=== PATIENT | female | born 1955 | race Caucasian/White ===

== ENCOUNTER → 2019-08-26 | Outpatient (CLI) | payer BC ==
--- NOTE | 2019-08-26 10:28 | Diagnostic Imaging Report ---
PROCEDURE: US left lower extremity venous. TECHNIQUE: Multiple real-time grayscale images were obtained over the left lower extremity in various projections. Additional duplex Doppler and color Doppler images were also obtained. Date: August 26, 2019. Indication: 64-year-old female, left leg pain. Comparison: October 07, 2015. Findings: The left common femoral vein, left superficial femoral vein, and left popliteal vein are patent. The visualized portions of the left greater saphenous vein and deep femoral vein are patent. The left posterior tibial vein is patent. Impression: 1. Negative for left lower extremity deep venous thrombosis. Dictated by: Dictated on workstation # [id number]
--- NOTE | 2019-08-26 10:29 | Diagnostic Imaging Report ---
INDICATION: Left leg pain Arterial Doppler left leg Duplex ultrasound of the arterial system of the left leg was done with grayscale, spectral wave form and color Doppler analysis Patient has triphasic wave forms and normal velocities throughout the left leg. There is normal velocity transition from the groin to the ankle. IMPRESSION: Unremarkable arterial Doppler of the left leg. Dictated by: Dictated on workstation # [id number]
--- NOTE | 2019-08-26 13:17 | Diagnostic Imaging Report ---
INDICATION: Routine screening. COMPARISON: 08/14/2015 and 09/20/2013. TECHNIQUE: 2D and 3D bilateral screening mammography was performed with CAD. FINDINGS: Both breasts are heterogeneously dense, limiting the sensitivity of mammography. There are benign parenchymal and vascular calcifications bilaterally. The breast parenchymal pattern appears to be stable. No dominant mass or malignant appearing microcalcifications are seen. The axillae are unremarkable. IMPRESSION: No mammographic features suspicious for malignancy are identified. ACR BI-RADS Category 2: Benign findings. Result letter will be mailed to the patient. Note: At least 10% of breast cancer is not imaged by mammography. Dictated by: Dictated on workstation # [id number]
== END ==
LOC: RAD 08:38
PROVIDERS: ATTEND Nurse Practitioner Family
DX: Z00.01 Encounter for general adult medical examination with abnormal findings (principal); Z12.31 Encounter for screening mammogram for malignant neoplasm of breast; I10 Essential (primary) hypertension; I73.9 Peripheral vascular disease, unspecified; M10.9 Gout, unspecified; F32.9 Major depressive disorder, single episode, unspecified; G43.809 Other migraine, not intractable, without status migrainosus; M62.838 Other muscle spasm; M13.80 Other specified arthritis, unspecified site; M79.605 Pain in left leg; Z72.0 Tobacco use
CPT/HCPCS: 77063; 77067; 93926

== ENCOUNTER 2019-10-11 05:46 | Outpatient (RCR) | payer BC ==
[~2019-10-11] VITALS: Ht 157.5 cm; Wt 57.7 kg
[~2019-10-11 05:46] MED LIST: ALLO100T PO; ESCI10TA PO; LEVO50TA6 PO; LISI-556 PO; POTA99TA21 PO; ROPI0.5T4 PO
== END 2019-10-11 09:42 | disposition home or self-care (01) ==
LOC: PREOP 05:46
PROVIDERS: ATTEND Surgery
DX: Z01.818 Encounter for other preprocedural examination (principal); K21.9 Gastro-esophageal reflux disease without esophagitis; Z20.828 Contact with and (suspected) exposure to other viral communicable diseases
CPT/HCPCS: 87635

== ENCOUNTER 2019-10-15 08:24 | Day surgery (SDC) | payer BC ==
[~2019-10-15] VITALS: Ht 157.5 cm; Wt 57.7 kg
[2019-10-15] MEDS ORDERED: LACTATED RINGERS 1,000 ML IV ONE (08:25)
[2019-10-15] MEDS ORDERED: LACTATED RINGERS 1,000 ML IV STA (08:32)
[2019-10-15] MEDS ORDERED: HURRICAINE EXT TUBE (BENZOCAINE) XX PRN (08:45)
[2019-10-15] MEDS ORDERED: ONDANSETRON 4 MG/2 ML (SDV) Z0FRAN ONE (08:48)
[2019-10-15] MEDS ORDERED: ONDANSETRON 4 MG/2 ML (SDV) Z0FRAN IVP ONE (08:55)
[2019-10-15 09:19] VITALS: BP 108/82
[2019-10-15] MEDS ORDERED: PROPOFOL INJECTION 0 ML IV ONE (09:24)
[2019-10-15] MEDS ORDERED: MIDAZOLAM 2 MG/2 ML (VERSED) VIAL ONE (09:24)
[2019-10-15] MEDS ORDERED: PROPOFOL INJECTION 50 ML IV ONE (09:39)
[2019-10-15] MEDS ORDERED: proPOfol 200 MG/20 ML (DIPRIVAN) VIAL IV ONE (09:52)
[2019-10-15 10:30] VITALS: BP 98/61
[2019-10-15 10:35] VITALS: BP 98/61
--- NOTE | 2019-10-15 10:41 | Progress Note-Post Operative ---
Post-Operative Progess Note Surgeon (s)/Staff Nurse (s) Surgeon JOSTIN LEWIS DO Staff Nurse: na Pre-Operative Diagnosis gerd, +cologuard Post-Operative Diagnosis gastritis, colon polyps Procedure & Operative Findings Date of Procedure 10/15/19 Procedure Performed/Findings egd c biopsies, colonoscopy c hot bx polypectomy and snare polypectomy Anesthesia Type per lamp inspector Estimated Blood Loss Estimated blood loss (mL): none Specimens/Packing Specimens Removed antrum, body, ge, ascending colon polyp, sigmoid polyp JOSTIN LEWIS DO Oct 15, 2019 10:41
[2019-10-15] MEDS ORDERED: PANT40TA2 PO (10:43)
--- NOTE | 2019-10-15 10:45 | Discharge Inst-Simple/Standard ---
Discharge Inst-Standard Discharge Medications New, Converted or Re-Newed RX: Transmitted to Pharmacy Patient Instructions/Follow Up Plan of Care/Instructions/FU: 2 weeks Gabriella Activity as Tolerated: Yes Discharge Diet: Regular Diet JOSTIN LEWIS DO Oct 15, 2019 10:45
[2019-10-15 11:05] VITALS: BP 106/65
[2019-10-15 11:26] VITALS: BP 106/65
--- NOTE | 2019-10-15 13:16 | Anesthesia-General Post-Op ---
MAC Patient Condition Mental Status/LOC: Same as Preop Cardiovascular: Satisfactory Nausea/Vomiting: Absent Respiratory: Satisfactory Pain: Controlled Complications: Absent Post Op Complications Complications None Follow Up Care/Instructions Patient Instructions None needed. Anesthesiology Discharge Order Discharge Order Patient is doing well, no complaints, stable vital signs, no apparent adverse anesthesia problems. No complications reported per nursing. TATO SHAH CRNA Oct 15, 2019 13:16
--- NOTE | 2019-10-15 18:11 | OPERATIVE REPORT ---
DATE OF SERVICE: 10/15/2019 PREOPERATIVE DIAGNOSES: Positive Cologuard test, gastroesophageal reflux disease, diarrhea. POSTOPERATIVE DIAGNOSES: Gastritis, hiatal hernia and colon polyps. PROCEDURE: EGD with biopsies, colonoscopy with hot biopsy polypectomy and snare polypectomy. SURGEON: Jostin Quiroz DO ANESTHESIA: Per PROGRAM FACILITATOR. ESTIMATED BLOOD LOSS: None. COMPLICATIONS: None. INDICATIONS: The patient is a 64-year-old female with GERD and frequent diarrhea and had a positive Cologuard test. She understands risks and benefits of procedure and wished to proceed with procedure. Consent was signed in the chart. DESCRIPTION OF PROCEDURE: The patient was taken to the endoscopy suite, placed in left lateral recumbent position. Timeout was performed. Scope was inserted in mouth, esophagus, stomach and duodenum. There were no polyps, masses or ulcerations within the duodenum. Scope was then slowly retracted back into the stomach, which had erythematous changes throughout and changes consistent with gastritis. No polyps, masses or ulcerations. Biopsy of the antrum and body were obtained. Scope was retroflexed noting a hiatal hernia, no other pathology. Scope was returned to its normal position, slowly withdrawn to distal esophagus. Biopsy of the GE junction was obtained. Scope was then slowly retracted back to completely remove noting no other pathology. Digital rectal exam was performed. No palpable polyps, masses or ulcerations. Scope was inserted in the rectum, advanced all the way to cecum with minimal difficulty. Prep was adequate. Scope was then slowly retracted back. No polyps, masses or ulcerations visualized within the cecum. The ascending, a small polyp was present. Hot biopsy polypectomy was performed. Scope was then continuously retracted back. No polyps, masses or ulcerations in the remainder of the ascending, transverse and descending colon. In sigmoid colon, a larger pedunculated polyp was present, which snare polypectomy was performed. Scope was then used to suction and withdrawn from the colon. Scope was then reinserted into the colon and advanced all the way to the place of where the polyp was removed and then slowly retracted back. No other polyps, masses or ulcerations within the remainder of the sigmoid colon and in the rectum, scope was attempted to be retroflexed, but the scope had to be inserted and retracted with multiple visualizations. Then, the scope was then slowly retracted back until completely removed. The patient tolerated procedure well without any complications. She was taken to recovery room in stable condition. RECOMMENDATIONS: The patient will need repeat colonoscopy in one year to reevaluate the colon due to the larger polyp and was started on Protonix 40 mg daily to see how her symptoms are doing with her reflux. Job ID: [id number] DocumentID: [id number] Dictated Date: 10/15/2019 10:52:44 Structural Engineer Date: 10/15/2019 18:10:03 Dictated By: JOSTIN QUIROZ DO
== END 2019-10-15 11:28 | disposition home or self-care (01) ==
LOC: ENDO 08:24
PROVIDERS: ATTEND Surgery
DX: K29.70 Gastritis, unspecified, without bleeding (principal); K44.9 Diaphragmatic hernia without obstruction or gangrene; K21.9 Gastro-esophageal reflux disease without esophagitis; D12.5 Benign neoplasm of sigmoid colon; D12.2 Benign neoplasm of ascending colon; K31.9 Disease of stomach and duodenum, unspecified; K25.9 Gastric ulcer, unspecified as acute or chronic, without hemorrhage or perforation; I10 Essential (primary) hypertension; D64.9 Anemia, unspecified; M19.91 Primary osteoarthritis, unspecified site; Z87.891 Personal history of nicotine dependence; Z88.0 Allergy status to penicillin; Z88.1 Allergy status to other antibiotic agents; Z88.8 Allergy status to other drugs, medicaments and biological substances; Z79.899 Other long term (current) drug therapy; Z79.890 Hormone replacement therapy; Z96.659 Presence of unspecified artificial knee joint; Z88.6 Allergy status to analgesic agent
CPT/HCPCS: 88305

== ENCOUNTER 2020-01-13 13:24 | Emergency (ER) | payer BC ==
[~2020-01-13] VITALS: Ht 157 cm; Wt 56.6 kg
[~2020-01-13 13:24] MED LIST changes: +PANT40TA2 PO
[2020-01-13] MEDS ORDERED: ASPIRIN 81 MG CHEW (CHILDREN'S ASA) PO ONE (13:45)
[2020-01-13 13:50] LABS: BASOPHILS % (AUTO) 0 % (0-10); EOSINOPHILS # (AUTO) 0.1 10^3/uL (0.0-0.3); EOSINOPHILS % (AUTO) 1 % (0-10); HEMATOCRIT 43 % (35-52); HEMOGLOBIN 13.7 g/dL (11.5-16.0); LYMPHOCYTES # (AUTO) 2.7 10^3/uL (1.0-4.0); LYMPHOCYTES % (AUTO) 37 % (12-44); MEAN CORPUSCULAR HEMOGLOBIN 34 pg (25-34); MEAN CORPUSCULAR HGB CONC 32 g/dL (32-36); MEAN CORPUSCULAR VOLUME 108 fL (80-99); MEAN PLATELET VOLUME 8.1 fL (9.0-12.2); MONOCYTES # (AUTO) 0.7 10^3/uL (0.0-1.0); MONOCYTES % (AUTO) 10 % (0-12); NEUTROPHILS # (AUTO) 3.6 10^3/uL (1.8-7.8); NEUTROPHILS % (AUTO) 51 % (42-75); PLATELET COUNT 370 10^3/uL (130-400); WHITE BLOOD COUNT 7.2 10^3/uL (4.3-11.0)
[2020-01-13 13:59] LABS: ALBUMIN 4.6 GM/DL (3.2-4.5); CHLORIDE 104 MMOL/L (98-107); POTASSIUM 4.4 MMOL/L (3.6-5.0); SODIUM 140 MMOL/L (135-145)
[2020-01-13 14:00] LABS: CALCIUM 8.5 MG/DL (8.5-10.1)
[2020-01-13] MEDS ORDERED: amLODIPine 5 MG (NORVASC) TAB PO ONE (14:00)
[2020-01-13] MEDS ORDERED: KETOROLAC 30 MG/ML VIAL IVP STA (14:00)
[2020-01-13 14:02] LABS: GLUCOSE 99 MG/DL (70-105); TOTAL PROTEIN 7.3 GM/DL (6.4-8.2)
[2020-01-13 14:03] LABS: BILIRUBIN,TOTAL 0.2 MG/DL (0.1-1.0); CARBON DIOXIDE 24 MMOL/L (21-32)
[2020-01-13 14:05] LABS: ALKALINE PHOSPHATASE 72 U/L (40-136); CREATININE SERUM 0.74 MG/DL (0.60-1.30); GFR ESTIMATED > 60
[2020-01-13 14:06] LABS: INR 0.8 (0.8-1.4); PROTHROMBIN TIME PATIENT 11.9 SEC (12.2-14.7)
[2020-01-13 14:07] LABS: BUN/CREATININE RATIO 19
[2020-01-13 14:08] LABS: ALANINE AMINOTRANSFERASE 25 U/L (0-55); MAGNESIUM 2.1 MG/DL (1.6-2.4)
--- NOTE | 2020-01-13 14:19 | Diagnostic Imaging Report ---
INDICATION: Chest pain COMPARISON: 07/11/2015. FINDINGS: Single frontal view of the chest demonstrates normal heart size and pulmonary vascularity. The lungs are well aerated and clear. No large pleural effusion or pneumothorax is seen. The visualized osseous structures show no acute abnormalities. IMPRESSION: 1. No acute cardiopulmonary process. Dictated by: Dictated on workstation # [id number]
--- NOTE | 2020-01-13 14:57 | ED Chest Pain ---
General Chief Complaint: Chest Pain Stated Complaint: CP Nursing Triage Note: pt presents to ed with complaints of l sided cp since monday. pt was seen at urgent care and had a flu and rapid covid swab done both were reported negative as well as an ekg. Nursing Sepsis Screen: No Definite Risk Source: patient Exam Limitations: no limitations History of Present Illness Date Seen by Provider: Jan 13, 2020 Time Seen by Provider: 13:38 Initial Comments Here with report of left-sided chest pain under the left breast that has been going on for the last 2 days. Has been persistent and she reports that it sharp. Noted that she has had cough for couple weeks that is actually getting better and is wondering if maybe this is musculoskeletal but was worried about heart. She did try 325 mg of aspirin today without relief. She has also taken Tylenol 3 and one of her husbands oxycodones and that has not helped. Denies nausea, vomiting or diarrhea. Reports that she may have a urinary tract infection. 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 SURGEON: Yes NTG SL ORTHOPAEDIC SURGEON: No Associated Symptoms: No back pain, No fatigue, No nausea/vomiting, No shortness of breath, No weakness Allergies and Home Medications Allergies Coded Allergies: Penicillins (Verified Allergy, Unknown, Hives, 10/08/19) cephalexin (Verified Allergy, Unknown, Anaphylaxis, 10/08/19) metoclopramide (Verified Allergy, Unknown, 10/08/19) tramadol (Verified Allergy, Unknown, Itching, 10/08/19) Home Medications Allopurinol 100 Mg Tablet, 100 MG PO DAILY, (Reported) Escitalopram Oxalate 10 Mg Tablet, 10 MG PO DAILY, (Reported) Levothyroxine Sodium 50 Mcg Tablet, 50 MCG PO DAILY, (Reported) Lisinopril 5 Mg Tablet, 5 MG PO DAILY, (Reported) Pantoprazole Sodium 40 Mg Tablet.dr, 40 MG PO DAILY Prescribed by: JOSTIN LEWIS on 10/15/19 1043 Potassium Gluconate 99 Mg Tablet, 99 MG PO DAILY, (Reported) Ropinirole HCl 0.5 Mg Tablet, 0.5 MG PO HS, (Reported) Patient Home Medication List Home Medication List Reviewed: Yes Review of Systems Review of Systems Constitutional: see HPI; No chills, No fever EENTM: No Symptoms Reported Respiratory: Cough; Denies Shortness of Air Cardiovascular: Chest Pain; Denies Edema Gastrointestinal: Denies Diarrhea, Denies Vomiting Genitourinary: No Symptoms Reported Musculoskeletal: no symptoms reported Skin: no symptoms reported Psychiatric/Neurological: No Symptoms Reported All Other Systems Reviewed Negative Unless Noted: Yes Past Nbjyvsv-Kfsjoq-Aqmpea Hx Past Med/Social Hx: Reviewed Nursing Past Med/Soc Hx Patient Social History Alcohol Use: Denies Use Recreational Drug Use: No Smoking Status: Current Everyday Smoker Type Used: Cigarettes Former Smoker, Quit: Oct 07, 2018 Recent Foreign Travel: No Contact w/Someone Who Travel: No Recent Infectious Disease Expo: No Recent Hopitalizations: No Physical Abuse: No Sexual Abuse: No Mistreated: No Fear: No Seasonal Allergies Seasonal Allergies: No Past Medical History Surgeries: Yes (c/s x3, TKR) Hysterectomy, Orthopedic, Tonsillectomy Respiratory: No Cardiac: Yes Hypertension 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 Genitourinary: No Gastrointestinal: Yes (+cologuard) Gastroesophageal Reflux, Chronic Diarrhea Musculoskeletal: Yes (joint pain) Endocrine: Yes Hypothyroidsim HEENT: No Cancer: No Psychosocial: No Integumentary: No Blood Disorders: Yes (anemia) Family Medical History Reviewed Nursing Family Hx Physical Exam Vital Signs Vital Signs - First Documented 01/13/20 13:47 Temp 36.2 Pulse 80 Resp 18 B/P (MAP) 192/80 (117) Pulse Ox 97 O2 Delivery Room Air Capillary Refill : Less Than 3 Seconds Height, Weight, BMI Height: '" Weight: lbs. oz. kg; 22.00 BMI Method: General Appearance: No Apparent Distress, WD/WN HEENT: PERRL/EOMI, Pharynx Normal Neck: Non Tender, Supple Respiratory: Lungs Clear, Normal Breath Sounds, Other (Tender under left breast) Cardiovascular: Regular Rate, Rhythm, No Murmur Gastrointestinal: Non Tender, Soft Neurologic/Psychiatric: Alert, Oriented x3 Skin: Normal Color, Cool; No Rash Progress/Results/Core Measures Results/Orders Lab Results Laboratory Tests Test 01/13/20 13:38 01/13/20 14:03 Range/Units White Blood Count 7.2 4.3-11.0 10^3/uL Red Blood Count 4.01 3.80-5.11 10^6/uL Hemoglobin 13.7 11.5-16.0 g/dL Hematocrit 43 35-52 % Mean Corpuscular Volume 108 H 80-99 fL Mean Corpuscular Hemoglobin 34 25-34 pg Mean Corpuscular Hemoglobin Concent 32 32-36 g/dL Red Cell Distribution Width 12.7 10.0-14.5 % Platelet Count 370 130-400 10^3/uL Mean Platelet Volume 8.1 L 9.0-12.2 fL Immature Granulocyte % (Auto) 1 % Neutrophils (%) (Auto) 51 42-75 % Lymphocytes (%) (Auto) 37 12-44 % Monocytes (%) (Auto) 10 0-12 % Eosinophils (%) (Auto) 1 0-10 % Basophils (%) (Auto) 0 0-10 % Neutrophils # (Auto) 3.6 1.8-7.8 10^3/uL Lymphocytes # (Auto) 2.7 1.0-4.0 10^3/uL Monocytes # (Auto) 0.7 0.0-1.0 10^3/uL Eosinophils # (Auto) 0.1 0.0-0.3 10^3/uL Basophils # (Auto) 0.0 0.0-0.1 10^3/uL Immature Granulocyte # (Auto) 0.0 0.0-0.1 10^3/uL Prothrombin Time 11.9 L 12.2-14.7 SEC INR Comment 0.8 0.8-1.4 Activated Partial Thromboplast Time 27 24-35 SEC D-Dimer < 0.27 0.00-0.49 UG/ML Sodium Level 140 135-145 MMOL/L Potassium Level 4.4 3.6-5.0 MMOL/L Chloride Level 104 98-107 MMOL/L Carbon Dioxide Level 24 21-32 MMOL/L Anion Gap 12 5-14 MMOL/L Blood Urea Nitrogen 14 7-18 MG/DL Creatinine 0.74 0.60-1.30 MG/DL Estimat Glomerular Filtration Rate > 60 BUN/Creatinine Ratio 19 Glucose Level 99 70-105 MG/DL Calcium Level 8.5 8.5-10.1 MG/DL Corrected Calcium 8.5-10.1 MG/DL Magnesium Level 2.1 1.6-2.4 MG/DL Total Bilirubin 0.2 0.1-1.0 MG/DL Aspartate Amino Transf (AST/SGOT) 17 5-34 U/L Alanine Aminotransferase (ALT/SGPT) 25 0-55 U/L Alkaline Phosphatase 72 40-136 U/L Myoglobin 19.8 10.0-92.0 NG/ML Troponin I < 0.028 <0.028 NG/ML Total Protein 7.3 6.4-8.2 GM/DL Albumin 4.6 H 3.2-4.5 GM/DL Lipase 22 8-78 U/L Urine Color YELLOW Urine Clarity CLEAR Urine pH 5.5 5-9 Urine Specific Russell <=1.005 1.016-1.022 Urine Protein NEGATIVE NEGATIVE Urine Glucose (UA) NEGATIVE NEGATIVE Urine Ketones NEGATIVE NEGATIVE Urine Nitrite NEGATIVE NEGATIVE Urine Bilirubin NEGATIVE NEGATIVE Urine Urobilinogen 0.2 < = 1.0 MG/DL Urine Leukocyte Esterase NEGATIVE NEGATIVE Urine RBC (Auto) TRACE-L NEGATIVE Urine RBC 0-2 /HPF Urine WBC RARE /HPF Urine Squamous Epithelial Cells 2-5 /HPF Urine Crystals NONE /LPF Urine Bacteria NEGATIVE /HPF Urine Casts NONE /LPF Urine Mucus NEGATIVE /LPF Urine Culture Indicated NO My Orders Orders - MERCEDES MONET MD Cbc With Automated Diff (01/13/20 13:37) Magnesium (01/13/20 13:37) Chest 1 View, Ap/Pa Only (01/13/20 13:37) Ekg Tracing (01/13/20 13:37) Comprehensive Metabolic Panel (01/13/20 13:37) Myoglobin Serum (01/13/20 13:37) Protime With Inr (01/13/20 13:37) Partial Thromboplastin Time (01/13/20 13:37) O2 (01/13/20 13:37) Monitor-Rhythm Ecg Trace Only (01/13/20 13:37) Lipid Panel (01/14/20 06:00) Ed Iv/Invasive Line Start (01/13/20 13:37) Fibrin Degradation Products (01/13/20 13:37) Troponin I (01/13/20 13:37) Lipase (01/13/20 14:00) Ketorolac Injection (Toradol Injection) (01/13/20 14:00) Amlodipine Tablet (Norvasc Tablet) (01/13/20 14:00) Ua Culture If Indicated (01/13/20 14:57) Medications Given in ED Current Medications Medications Dose Ordered Sig/Maria G Route Start Time Stop Time Status Last Admin Dose Admin Amlodipine Besylate 5 mg ONCE ONCE PO 01/13/20 14:00 01/13/20 14:01 DC 01/13/20 14:38 5 MG Vital Signs/I&O 01/13/20 01/13/20 13:47 13:47 Temp 36.2 Pulse 80 Resp 18 B/P (MAP) 192/80 (117) Pulse Ox 97 O2 Delivery Room Air Blood Pressure Mean: 117 Progress Progress Note : Progress Note Seen and evaluated. IV, labs, chest x-ray and EKG ordered. Toradol 30 mg IV and amlodipine 5 mg p.o. ordered. Monitor patient. 1600: Pain is about the same but work-up is negative. We will initiate hydrocodone outpatient for a few tablets. We will also initiate amlodipine outpatient and have her follow-up with her doctor. Discharged home with return precautions. Patient verbalized understanding of instructions and agreement with plan. Initial ECG Impression Date: Jan 13, 2020 Initial ECG Impression Time: 13:33 Initial ECG Rate: 80 Initial ECG Rhythm: Normal Sinus Comment Sinus rhythm with normal axis. No evidence of ST elevation AL. No previous available for comparison. Interpreted by me. Diagnostic Imaging Diagonstic Imaging: Xray Plain Films/CT/US/NM/MRI: chest Comments [facility]. [place], [place] NAME: LISANDRA LEONARD [facility] REC#: [id number] PT STATUS: REG ER : 1955 PHYSICIAN: MERCEDES MONET MD ADMIT DATE: 01/13/20/ER Draft Date of Exam:01/13/20 CHEST 1 VIEW, AP/PA ONLY INDICATION: Chest pain COMPARISON: 07/11/2015. FINDINGS: Single frontal view of the chest demonstrates normal heart size and pulmonary vascularity. The lungs are well aerated and clear. No large pleural effusion or pneumothorax is seen. The visualized osseous structures show no acute abnormalities. IMPRESSION: 1. No acute cardiopulmonary process. Dictated on workstation # [id number] Dict: 01/13/20 1408 Trans: 01/13/20 1418 [id number] Interpreted by: CHEVY ZHANG MD Electronically signed by: Departure Impression Primary Impression: Chest pain Qualified Codes: R07.9 - Chest pain, unspecified Disposition: 01 HOME, SELF-CARE Condition: Stable Departure-Patient Inst. Decision time for Depature: 16:05 Referrals: [facility] (PCP) Primary Care Physician RIA ROME APRN (Family) Primary Care Physician Patient Instructions: Chest Pain (DC) Add. Discharge Instructions: All discharge instructions reviewed with patient and/or family. Voiced understanding. Follow-up with your doctor for recheck regarding your blood pressure. We will initiate amlodipine now and you can take that. You have 1 month prescription which will give you time to evaluate effectiveness and talk with your doctor. You may take the hydrocodone for severe pain but otherwise take Tylenol/acetaminophen 1000 mg every 8 hours as needed for pain. Do not take the Tylenol/acetaminophen at the same time as the prescribed hydrocodone-containing medicine as they both have acetaminophen in them. Return for worse pain, fever, vomiting, weakness, breathing problems or other concerns as needed. Scripts Amlodipine Besylate (Amlodipine Besylate) 5 Mg Tablet 5 MG PO DAILY for 30 Days, #30 TAB 0 Refills Prov: MERCEDES MONET MD 01/13/20 Hydrocodone/Acetaminophen (Hydrocodone/Acetaminophen 5 MG/325 MG TAB) 1 Each Tablet 1 TAB PO Q6H for Pain MDD 10 TABS for 3 Days, #6 TAB 0 Refills Prov: MERCEDES MONET MD 01/13/20 MERCEDES MONET MD Jan 13, 2020 14:56
[2020-01-13 15:01] LABS: BILIRUBIN,URINE NEGATIVE (NEGATIVE); CLARITY,URINE CLEAR; COLOR,URINE YELLOW; GLUCOSE, URINE (UA) NEGATIVE (NEGATIVE); KETONES,URINE NEGATIVE (NEGATIVE); LEUKOCYTE ESTERASE ,URINE NEGATIVE (NEGATIVE); NITRITE,URINE NEGATIVE (NEGATIVE); PH,URINE 5.5 (5-9); PROTEIN,URINE NEGATIVE (NEGATIVE)
[2020-01-13 15:11] LABS: RBC,URINE 0-2 /HPF; WBC,URINE RARE /HPF
[2020-01-13 15:12] LABS: BACTERIA,URINE NEGATIVE /HPF
[2020-01-13] MEDS ORDERED: HYDR-4226 PO (16:08)
[2020-01-13] MEDS ORDERED: AMLO-250 PO (16:08)
[2020-01-13 16:25] VITALS: BP 162/94
== END 2020-01-13 16:25 | disposition home or self-care (01) ==
LOC: EDUNIT# 13:24 → ER 13:27
DX: R07.9 Chest pain, unspecified (principal); I10 Essential (primary) hypertension; K21.9 Gastro-esophageal reflux disease without esophagitis; E03.9 Hypothyroidism, unspecified; F17.210 Nicotine dependence, cigarettes, uncomplicated; Z88.0 Allergy status to penicillin; Z88.5 Allergy status to narcotic agent; Z88.1 Allergy status to other antibiotic agents; Z88.8 Allergy status to other drugs, medicaments and biological substances; Z79.890 Hormone replacement therapy
CPT/HCPCS: 36415; 71045; 80053; 81000; 83690; 83735; 83874; 84484; 85025; 85379; 85610; 85730; 93005; 93041

== ENCOUNTER 2020-03-30 00:26 | Emergency (ER) | payer BC ==
[~2020-03-30] VITALS: Ht 157 cm; Wt 56.6 kg
[~2020-03-30 00:26] MED LIST changes: +AMLO-250 PO; +HYDR-4226 PO
[2020-03-30] MEDS ORDERED: ONDANSETRON 4 MG/2 ML (SDV) Z0FRAN IVP ONE (01:15)
[2020-03-30] MEDS ORDERED: TETANUS,DIPTH,PERTUSS P/F (BOOSTRIX) 0.5 ML VIAL IM ONE (01:15)
--- NOTE | 2020-03-30 01:21 | ED General ---
General Chief Complaint: Trauma-Non Activation Stated Complaint: HEAD INJ / LACERATION Source of Information: Patient History of Present Illness Date Seen by Provider: Mar 30, 2020 Time Seen by Provider: 01:05 Initial Comments PT ARRIVES VIA POV FROM HOME STATES SHE GOT UP AROUND 2330 TO GO TO THE BATHROOM, AND "FELL ASLEEP" OR POSSIBLY PASSED OUT ON THE TOILET, AND HIT HER HEAD ON HANDLE OF CABINET AND HAS LACERATION TO RIGHT PARIETAL AREA OF SCALP. WAS NOT WITNESSED, BUT SHE CALLED FOR HER AND HE WAS THERE IMMEDIATELY. IS UNKNOWN HOW LONG SHE WAS "PASSED OUT OR FELL ASLEEP" C/O NAUSEA, NO VOMITING NO VISION CHANGES NO CHANGES IN HEARING. NO CHEST PAIN NO SHORTNESS OF BREATH NO PALPITATIONS NO DIZZINESS NO PARESTHESIAS OR MOTOR DEFICITS NO NECK PAIN NO PAIN ANYWHERE EXCEPT HER HEAD PT IS NOT ON ASPIRIN OR ANY BLOOD THINNERS HAS HAD A COUGH AND WAS SEEN AT [facility] ON MONDAY--COVID TEST WAS NEGATIVE AT THAT TIME, AND WAS GIVEN RX FOR ADVAIR INHALER. NO FEVER NO OTHER SYMPTOMS NO KNOWN EXPOSURE TO COVID-19. 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 NO ONE ELSE LIVES IN THE HOUSE PT STATES SHE WAS TREATED FOR "SINUS INFECTION" ABOUT 3 WEEKS AGO, TOOK DOXYCYCLINE FOR 10 DAYS--FINISHED ABOUT 1 1/2 WEEKS AGO. HAD A NEGATIVE COVID-19 TEST AT THAT TIME PT SMOKES 1 PPD PCP: GOES TO [facility] FOR ALL [facility]ICAL CARE Allergies and Home Medications Allergies Coded Allergies: Penicillins (Verified Allergy, Unknown, Hives, 10/08/19) cephalexin (Verified Allergy, Unknown, Anaphylaxis, 10/08/19) metoclopramide (Verified Allergy, Unknown, 10/08/19) tramadol (Verified Allergy, Unknown, Itching, 10/08/19) Home Medications Allopurinol 100 Mg Tablet, 100 MG PO DAILY, (Reported) Amlodipine Besylate 5 Mg Tablet, 5 MG PO DAILY Prescribed by: MERCEDES MONET on 01/13/20 1608 Azithromycin 500 Mg Tablet, 500 MG PO DAILY Prescribed by: CASSIE SIERRA on 03/30/20 9339 Escitalopram Oxalate 10 Mg Tablet, 10 MG PO DAILY, (Reported) Hydrocodone/Acetaminophen 1 Each Tablet, 1 TAB PO Q6H Prescribed by: MERCEDES MONET on 01/13/20 1608 L. Acidophilus/Pectin, Morris 1 Each Capsule, 2 EACH PO QID Prescribed by: CASSIE SIERRA on 03/30/20358 Levofloxacin 500 Mg Tablet, 500 MG PO DAILY Prescribed by: CASSIE SIERRA on 03/30/20358 Levothyroxine Sodium 50 Mcg Tablet, 50 MCG PO DAILY, (Reported) Lisinopril 5 Mg Tablet, 5 MG PO DAILY, (Reported) Pantoprazole Sodium 40 Mg Tablet.dr, 40 MG PO DAILY Prescribed by: JOSTIN LEWIS on 10/15/19 104 Potassium Gluconate 99 Mg Tablet, 99 MG PO DAILY, (Reported) Ropinirole HCl 0.5 Mg Tablet, 0.5 MG PO HS, (Reported) Patient Home Medication List Home Medication List Reviewed: Yes Review of Systems Review of Systems Constitutional: no symptoms reported; No chills, No diaphoresis, No dizziness, No fever, No malaise, No weakness EENTM: no symptoms reported; No ear discharge, No ear pain, No blurred vision, No double vision, No epistaxis, No nose congestion, No throat pain Respiratory: see HPI, cough; No short of breath Cardiovascular: see HPI; No chest pain, No edema, No palpitations; syncope Gastrointestinal: see HPI; No abdominal pain, No diarrhea, No loss of appetite; nausea; No vomiting Genitourinary: no symptoms reported Musculoskeletal: No back pain, No neck pain Skin: see HPI Psychiatric/Neurological: See HPI, Headache; Denies Numbness, Denies Paresthesia, Denies Seizure, Denies Tingling, Denies Tremors, Denies Weakness Hematologic/Lymphatic: No Symptoms Reported Immunological/Allergic: no symptoms reported Past Lsemmja-Caqvsi-Mkqlpk Hx Past Med/Social Hx: Reviewed and Corrections made Patient Social History Alcohol Use: Denies Use Drug of Choice: DENIES Smoking Status: Current Everyday Smoker (1 PPD) Type Used: Cigarettes Recent Hopitalizations: No Seasonal Allergies Seasonal Allergies: No Past Medical History Surgeries: Yes (c/s x3, TKR) Section, Hysterectomy, Joint Replacement, Orthopedic, Tonsillectomy Respiratory: No Cardiac: Yes Hypertension 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 Genitourinary: No Gastrointestinal: Yes (+cologuard) Gastroesophageal Reflux, Chronic Diarrhea Musculoskeletal: Yes (joint pain; RESTLESS LEG SYNDROME; KNEE REPLACEMENT;CHRONIC OPIATE USE) Arthritis, Chronic Back Pain Endocrine: Yes Hypothyroidsim HEENT: No Cancer: No Psychosocial: Yes Anxiety, Depression Integumentary: No Blood Disorders: Yes (CHRONIC ANEMIA) Physical Exam Vital Signs Vital Signs - First Documented 03/30/20 04:31 Pulse Ox 99 Capillary Refill : Height, Weight, BMI Height: '" Weight: lbs. oz. kg; 22.00 BMI Method: General Appearance: No Apparent Distress, WD/WN Eyes: Bilateral Eye Normal Inspection, Bilateral Eye PERRL, Bilateral Eye EOMI HEENT: PERRL/EOMI, TMs Normal, Normal ENT Inspection, Pharynx Normal, Other (2 CM FULL THICKENESS LACERTION TO RIGHT PARIETAL SCALP, NO BLEEDING. NO HEMATOMA. GALEA INTACT, NO PALPABLE SKULL FRACTURE) Neck: Full Range of Motion, Normal Inspection, Non Tender, Supple Respiratory: Chest Non Tender, Normal Breath Sounds, No Accessory Muscle Use, No Respiratory Distress Cardiovascular: Regular Rate, Rhythm, No Edema, No JVD, No Murmur, Normal Peripheral Pulses Gastrointestinal: Normal Bowel Sounds, No Organomegaly, No Pulsatile Mass, Non Tender, Soft Back: Normal Inspection, No CVA Tenderness, No Vertebral Tenderness Extremity: Normal Capillary Refill, Normal Inspection, Normal Range of Motion, Non Tender, No Calf Tenderness, No Pedal Edema Neurologic/Psychiatric: Alert, Oriented x3, No Motor/Sensory Deficits, Normal 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, 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 as Tested Skin: Normal Color, Warm/Dry, Other (LACERATION TO RIGHT PARIETAL SCALP) Procedures/Interventions Wound Location: Scalp Other Wound Location RIGHT PARIETAL SCALP Wound Length (cm): 2 Wound's Depth, Shape: linear, sub Q Wound Explored: clean Betadine Prep?: No (BETASEPT) Anesthesia: Lidocaine w/ Epi (2%) Staple Repair: Stapler 35W (#3 BREE PLACED) Progress/Results/Core Measures Suspected Sepsis SIRS Temperature: Pulse: Respiratory Rate: Laboratory Tests 03/30/20 01:30: White Blood Count 11.2H Blood Pressure / Mean: Laboratory Tests 03/30/20 01:30: Creatinine 0.70, INR Comment 0.8, Platelet Count 314, Total Bilirubin 0.1 Results/Orders Lab Results Laboratory Tests Test 03/30/20 01:21 03/30/20 01:30 03/30/20 03:25 Range/Units Urine Color YELLOW Urine Clarity SL CLOUDY Urine pH 7.0 5-9 Urine Specific [place] 1.015 L 1.016-1.022 Urine Protein NEGATIVE NEGATIVE Urine Glucose (UA) NEGATIVE NEGATIVE Urine Ketones NEGATIVE NEGATIVE Urine Nitrite NEGATIVE NEGATIVE Urine Bilirubin NEGATIVE NEGATIVE Urine Urobilinogen 0.2 < = 1.0 MG/DL Urine Leukocyte Esterase NEGATIVE NEGATIVE Urine RBC (Auto) NEGATIVE NEGATIVE Urine RBC NONE /HPF Urine WBC 2-5 /HPF Urine Squamous Epithelial Cells 0-2 /HPF Urine Crystals NONE /LPF Urine Bacteria FEW H /HPF Urine Casts NONE /LPF Urine Mucus NEGATIVE /LPF Urine Culture Indicated YES Urine Opiates Screen POSITIVE H NEGATIVE Urine Oxycodone Screen NEGATIVE NEGATIVE Urine Methadone Screen NEGATIVE NEGATIVE Urine Propoxyphene Screen NEGATIVE NEGATIVE Urine Barbiturates Screen POSITIVE H NEGATIVE Ur Tricyclic Antidepressants Screen POSITIVE H NEGATIVE Urine Phencyclidine Screen NEGATIVE NEGATIVE Urine Amphetamines Screen NEGATIVE NEGATIVE Urine Methamphetamines Screen NEGATIVE NEGATIVE Urine Benzodiazepines Screen NEGATIVE NEGATIVE Urine Cocaine Screen NEGATIVE NEGATIVE Urine Cannabinoids Screen NEGATIVE NEGATIVE White Blood Count 11.2 H 4.3-11.0 10^3/uL Red Blood Count 2.95 L 3.80-5.11 10^6/uL Hemoglobin 10.1 L 11.5-16.0 g/dL Hematocrit 31 L 35-52 % Mean Corpuscular Volume 105 H 80-99 fL Mean Corpuscular Hemoglobin 34 25-34 pg Mean Corpuscular Hemoglobin Concent 33 32-36 g/dL Red Cell Distribution Width 11.9 10.0-14.5 % Platelet Count 314 130-400 10^3/uL Mean Platelet Volume 8.5 L 9.0-12.2 fL Immature Granulocyte % (Auto) 0 % Neutrophils (%) (Auto) 54 42-75 % Lymphocytes (%) (Auto) 33 12-44 % Monocytes (%) (Auto) 11 0-12 % Eosinophils (%) (Auto) 1 0-10 % Basophils (%) (Auto) 0 0-10 % Neutrophils # (Auto) 6.1 1.8-7.8 10^3/uL Lymphocytes # (Auto) 3.7 1.0-4.0 10^3/uL Monocytes # (Auto) 1.3 H 0.0-1.0 10^3/uL Eosinophils # (Auto) 0.1 0.0-0.3 10^3/uL Basophils # (Auto) 0.0 0.0-0.1 10^3/uL Immature Granulocyte # (Auto) 0.0 0.0-0.1 10^3/uL Prothrombin Time 11.9 L 12.2-14.7 SEC INR Comment 0.8 0.8-1.4 Activated Partial Thromboplast Time 26 24-35 SEC Sodium Level 144 135-145 MMOL/L Potassium Level 3.2 L 3.6-5.0 MMOL/L Chloride Level 106 98-107 MMOL/L Carbon Dioxide Level 28 21-32 MMOL/L Anion Gap 10 5-14 MMOL/L Blood Urea Nitrogen 12 7-18 MG/DL Creatinine 0.70 0.60-1.30 MG/DL Estimat Glomerular Filtration Rate > 60 BUN/Creatinine Ratio 17 Glucose Level 86 70-105 MG/DL Calcium Level 8.7 8.5-10.1 MG/DL Corrected Calcium 8.6 8.5-10.1 MG/DL Magnesium Level 2.2 1.6-2.4 MG/DL Total Bilirubin 0.1 0.1-1.0 MG/DL Aspartate Amino Transf (AST/SGOT) 14 5-34 U/L Alanine Aminotransferase (ALT/SGPT) 22 0-55 U/L Alkaline Phosphatase 73 40-136 U/L Troponin I < 0.028 <0.028 NG/ML Total Protein 6.3 L 6.4-8.2 GM/DL Albumin 4.1 3.2-4.5 GM/DL Serum Alcohol < 10 <10 MG/DL Coronavirus (COVID-19)(PCR) Negative Negative Coronavirus 2019 (KATTY) Negative Negative Micro Results Microbiology 03/30/20 Urine Culture - Preliminary, Resulted Culture In Progress My Orders Orders - CASSIE SIERRA DO Ed Iv/Invasive Line Start (03/30/20 01:07) Ekg Tracing (03/30/20 01:07) Monitor-Rhythm Ecg Trace Only (03/30/20 01:07) Ct Head/Cervical Spine Wo (03/30/20 01:07) Alcohol (03/30/20 01:07) Cbc With Automated Diff (03/30/20 01:07) Comprehensive Metabolic Panel (03/30/20 01:07) Drug Screen Stat (Urine) (03/30/20 01:07) Magnesium (03/30/20 01:07) Protime With Inr (03/30/20 01:07) Partial Thromboplastin Time (03/30/20 01:07) Ua Culture If Indicated (03/30/20 01:07) Troponin I (03/30/20 01:07) Ondansetron Injection (Zofran Injectio (03/30/20 01:15) Dipht,Pertuss(Acell),Tet Adult (Boostrix (03/30/20 01:15) Chest 1 View, Ap/Pa Only (03/30/20 01:15) Urine Culture (03/30/20 01:21) Coronavirus Sars-Cov-2 So 2018 (03/30/20 03:25) Covid 19 Inhouse Test (03/30/20 03:25) Lidocaine/Epi 2% 1:100,000 (Xylocaine/Ep (03/30/20 03:30) Medications Given in ED Vital Signs/I&O Capillary Refill : Progress Note : Progress Note UNEVENTFUL ER STAY RESTED QUIETLY FOR ENTIRE ER STAY COVID TESTING DONE ON RECEIVING CT REPORT OF GROUND GLASS OPACITIES/INFILTRATE IN RUL ECG Initial ECG Impression Date: Mar 30, 2020 Initial ECG Impression Time: 01:02 Initial ECG Rate: 82 Initial ECG Rhythm: Normal Sinus Diagnostic Imaging Comments CXR--NO ACUTE PROCESS, PENDING RADIOLOGIST REVIEW CT HEAD/CERVICAL SPINE--NO ACUTE INTRACRANIAL OR CERVICAL SPINE PROCESS, RUL W ITH GROUND GLASS OPACITIES--PER [facility] VIA FAX AT 0318 Reviewed: Reviewed by Me Departure Impression Primary Impression: Episode of syncope Additional Impressions: Closed head injury with brief loss of consciousness Scalp laceration RUL INFILTRATE Person under investigation for COVID-19 Disposition: 01 HOME, SELF-CARE Condition: Stable Departure-Patient Inst. Referrals: [facility] (PCP) Primary Care Physician RIA ROME APRN (Family) Primary Care Physician Patient Instructions: Closed Head Injury (DC), Community-Acquired Pneumonia, Adult (DC), Laceration Repair With [place] (DC), Syncope (Fainting) (DC), Preventing the Spread of an Infectious Disease, Coronavirus Disease 2019 (COVID- 19) (DC) Add. Discharge Instructions: CLEAN WOUND TWICE A DAY WITH ANTIBACTERIAL SOAP AND WATER BREE OUT IN 10 DAYS--RETURN TO ER FOR REMOVAL TAKE YOUR HOME PAIN MEDICATIONS NEEDED QUARANTINE FOR 2 WEEKS OR UNTIL CLEARED BY YOUR DR OR HEALTH DEPT. RETURN TO ER IF SYMPTOMS WORSEN All discharge instructions reviewed with patient and/or family. Voiced understanding. Scripts L. Acidophilus/Pectin, Morris (Acidophilus Capsule) 1 Each Capsule 2 EACH PO QID, #40 CAP Prov: CASSIE SIERRA DO 03/30/20 Levofloxacin (Levofloxacin) 500 Mg Tablet 500 MG PO DAILY, #7 TAB 0 Refills Prov: CASSIE SIERRA DO 03/30/20 Azithromycin (Zithromax) 500 Mg Tablet 500 MG PO DAILY for 5 Days, #5 TAB Prov: CASSIE SIERRA DO 03/30/20 CASSIE SIERRA DO Mar 30, 2020 01:21
[2020-03-30 01:27] LABS: BILIRUBIN,URINE NEGATIVE (NEGATIVE); CLARITY,URINE SL CLOUDY; COLOR,URINE YELLOW; GLUCOSE, URINE (UA) NEGATIVE (NEGATIVE); KETONES,URINE NEGATIVE (NEGATIVE); LEUKOCYTE ESTERASE ,URINE NEGATIVE (NEGATIVE); NITRITE,URINE NEGATIVE (NEGATIVE); PROTEIN,URINE NEGATIVE (NEGATIVE)
[2020-03-30 01:36] LABS: BACTERIA,URINE FEW /HPF; SQUAMOUS EPITHELIAL CELL,UR 0-2 /HPF
[2020-03-30 01:39] LABS: AMPHETAMINE SCREEN, URINE NEGATIVE (NEGATIVE); BARBITURATE SCREEN URINE POSITIVE (NEGATIVE); BENZODIAZEPINES SCREEN URINE NEGATIVE (NEGATIVE); CANNABINOID SCREEN, URINE NEGATIVE (NEGATIVE); COCAINE SCREEN URINE NEGATIVE (NEGATIVE); METHADONE STAT NEGATIVE (NEGATIVE); METHAMPHETAMINE SCREEN URINE S NEGATIVE (NEGATIVE); OPIATE SCREEN URINE POSITIVE (NEGATIVE); OXYCODONE STAT NEGATIVE (NEGATIVE); PROPOXYPHENE STAT NEGATIVE (NEGATIVE); TRICYCLIC ANTIDEPRESSANTS SCRE POSITIVE (NEGATIVE)
[2020-03-30 01:41] LABS: BASOPHILS % (AUTO) 0 % (0-10); EOSINOPHILS # (AUTO) 0.1 10^3/uL (0.0-0.3); EOSINOPHILS % (AUTO) 1 % (0-10); HEMATOCRIT 31 % (35-52); HEMOGLOBIN 10.1 g/dL (11.5-16.0); LYMPHOCYTES # (AUTO) 3.7 10^3/uL (1.0-4.0); LYMPHOCYTES % (AUTO) 33 % (12-44); MEAN CORPUSCULAR HEMOGLOBIN 34 pg (25-34); MEAN CORPUSCULAR HGB CONC 33 g/dL (32-36); MEAN CORPUSCULAR VOLUME 105 fL (80-99); MEAN PLATELET VOLUME 8.5 fL (9.0-12.2); MONOCYTES # (AUTO) 1.3 10^3/uL (0.0-1.0); MONOCYTES % (AUTO) 11 % (0-12); NEUTROPHILS # (AUTO) 6.1 10^3/uL (1.8-7.8); NEUTROPHILS % (AUTO) 54 % (42-75); PLATELET COUNT 314 10^3/uL (130-400); WHITE BLOOD COUNT 11.2 10^3/uL (4.3-11.0)
[2020-03-30 01:49] LABS: ALBUMIN 4.1 GM/DL (3.2-4.5); CHLORIDE 106 MMOL/L (98-107); INR 0.8 (0.8-1.4); PROTHROMBIN TIME PATIENT 11.9 SEC (12.2-14.7)
[2020-03-30 01:50] LABS: POTASSIUM 3.2 MMOL/L (3.6-5.0); SODIUM 144 MMOL/L (135-145)
[2020-03-30 01:51] LABS: CALCIUM 8.7 MG/DL (8.5-10.1)
[2020-03-30 01:52] LABS: GLUCOSE 86 MG/DL (70-105); TOTAL PROTEIN 6.3 GM/DL (6.4-8.2)
[2020-03-30 01:53] LABS: CARBON DIOXIDE 28 MMOL/L (21-32)
[2020-03-30 01:54] LABS: BILIRUBIN,TOTAL 0.1 MG/DL (0.1-1.0)
[2020-03-30 01:55] LABS: ALKALINE PHOSPHATASE 73 U/L (40-136)
[2020-03-30 01:56] LABS: GFR ESTIMATED > 60
[2020-03-30 01:57] LABS: BUN/CREATININE RATIO 17
[2020-03-30 01:58] LABS: ALANINE AMINOTRANSFERASE 22 U/L (0-55); MAGNESIUM 2.2 MG/DL (1.6-2.4)
--- NOTE | 2020-03-30 02:25 | NUR ---
PT S/O UPDATED ON PLAN OF CARE AND PT CONDITION. TO HAVE S/O WAIT IN WAITING ROOM AT THIS TIME R/T MULTIPLE COVID + AND PUI PT's IN ER AT THIS TIME. S/O VERBALIZED UNDERSTANDING. PT NOTIFIED AND VERBALIZED UNDERSTANDING.
[2020-03-30] MEDS ORDERED: LIDOCAINE/EPI 2% 1:100,00 (XYLOCAINE) 20 ML VIAL INJ ONE (03:30)
--- NOTE | 2020-03-30 03:48 | NUR ---
[address] SIERRA TO 2CM LAC TO TOP RIGHT SCALP.
[2020-03-30] MEDS ORDERED: L. A1CAP11 PO (03:59)
[2020-03-30] MEDS ORDERED: LEVO500T80 PO (03:59)
[2020-03-30] MEDS ORDERED: AZIT500T PO (03:59)
[2020-03-30 04:31] VITALS: BP 137/87
--- NOTE | 2020-03-30 05:43 | Diagnostic Imaging Report ---
INDICATION: SYNCOPE COMPARISON: 01/13/2020 FINDINGS: Single frontal view of the chest demonstrates normal heart size and pulmonary vascularity. The lungs are well aerated and clear. No large pleural effusion or pneumothorax is seen. The visualized osseous structures show no acute abnormalities. IMPRESSION: 1. No acute cardiopulmonary process. Dictated by: Dictated on workstation # [id number]
--- NOTE | 2020-03-30 06:43 | Diagnostic Imaging Report ---
PROCEDURE: CT head and CT cervical spine without contrast. TECHNIQUE: Multiple contiguous axial images were obtained through the brain and cervical spine without the use of intravenous contrast. Sagittal and coronal reformations through the cervical spine were then performed. Auto Exposure Controls were utilized during the CT exam to meet ALARA standards for radiation dose reduction. INDICATION: Fall. Trauma to head. COMPARISON: 08/31/2014 FINDINGS: CT head: Ventricles and cortical sulci are age-appropriate and stable in size and contour. There is no midline shift or mass-effect. No acute intra-axial hemorrhage is seen. There are no abnormal areas of increased or decreased density to suggest acute hemorrhage or edema. No extra-axial masses or collections are present. The bony calvarium is intact. The visualized paranasal sinuses are unremarkable. The mastoid air cells are clear. CT cervical spine: Evaluation of static alignment shows straightening of normal lordotic curvature. Findings may relate to patient positioning, as well as spasm. There is also slight grade 1 anterolisthesis at C4-C5. There is no evidence of jumped facets. Vertebral body heights are maintained. There is no acute fracture. No bony fragments are seen within the spinal canal. There are mild multilevel degenerative changes consistent with intervertebral disc height loss with anterior and posterior disc osteophyte complex formations and multilevel facet arthropathy. Pre and paravertebral soft tissue structures are unremarkable. Included portions of lung apices show area of juxtapleural groundglass density within the lateral right apex. Technical Documentation Specialist area measures 1.8 x 0.9 cm. IMPRESSION: 1. No acute intracranial abnormality. No CT evidence of mass, acute infarct or intracranial hemorrhage. 2. No acute fracture or dislocation cervical spine. 3. Juxtapleural groundglass density within the lateral margins of the right apex. Findings could be infectious or inflammatory basis. Adenoma in situ may have a similar appearance. Follow-up with dedicated CT of the chest is recommended for further evaluation and could be performed on nonemergent basis. 4. I agree with Barrett report. Dictated by: Dictated on workstation # [id number]
== END 2020-03-30 04:32 | disposition home or self-care (01) ==
LOC: EDUNIT# 00:26 → ER 00:27
DX: S01.01XA Laceration without foreign body of scalp, initial encounter (principal); S06.9X9A Unspecified intracranial injury with loss of consciousness of unspecified duration, initial encounter; R55 Syncope and collapse; R91.8 Other nonspecific abnormal finding of lung field; K21.9 Gastro-esophageal reflux disease without esophagitis; I10 Essential (primary) hypertension; F41.9 Anxiety disorder, unspecified; F32.9 Major depressive disorder, single episode, unspecified; E03.9 Hypothyroidism, unspecified; G89.29 Other chronic pain; M54.9 Dorsalgia, unspecified; F17.210 Nicotine dependence, cigarettes, uncomplicated; Z23 Encounter for immunization; Z20.822 Contact with and (suspected) exposure to COVID-19; Z88.0 Allergy status to penicillin; Z88.5 Allergy status to narcotic agent; Z88.1 Allergy status to other antibiotic agents; Z88.8 Allergy status to other drugs, medicaments and biological substances; Z79.890 Hormone replacement therapy; Z79.891 Long term (current) use of opiate analgesic; W22.8XXA Striking against or struck by other objects, initial encounter
CPT/HCPCS: 12001; 70450; 71045; 72125; 80053; 80306; 81000; 83735; 84484; 85025; 85610; 85730; 87088; 93005; 93041; G0480; U0002; 36415; 80320; 87635; 90715

== ENCOUNTER 2020-05-18 00:16 | Emergency (ER) | payer BC ==
[~2020-05-18] VITALS: Ht 155 cm; Wt 57.0 kg
[~2020-05-18 00:16] MED LIST changes: +AZIT500T PO; +L. A1CAP11 PO; +LEVO500T80 PO; -LISI-556 PO; +LISI-729 PO
[2020-05-18] MEDS ORDERED: LIDOCAINE/EPI 2% 1:100,00 (XYLOCAINE) 20 ML VIAL INJ ONE (00:30)
--- NOTE | 2020-05-18 00:39 | ED Upper Extremity ---
General Chief Complaint: Laceration Stated Complaint: L HAND LACERATION;FALL Source: patient History of Present Illness Date Seen by Provider: May 18, 2020 Time Seen by Provider: 00:27 Initial Comments PT ARRIVES VIA POV FROM HOME WITH PT STATES SHE GOT UP TO GO TO THE BATHROOM AT 2355, AND FELL ASLEEP ON THE TOILET AND FELL OFF, CUTTING HER LEFT HAND ON METAL HANDLE OF SHOWER DOOR, SHE THINKS. ( LIVE IN A [employer] TRAIL[employer]--[employer]S) OCCURRED AT MIDNIGHT, HEARD HER, AND RUSHED IN--STATES SHE WAS ALREADY BACK ON THE TOILET BY THE TIME HE GOT TO THE BATHROOM DID NOT HIT HEAD NO OTHER INJURIES NO PARESTHESIAS OR MOTOR DEFICITS NO DIZZINESS NO CHEST PAIN OR PALPITATIONS NO HEADACHE NO VISION CHANGES NO NAUSEA/VOMITING NO NECK OR BACK PAIN PT IS NOT ON ASPIRIN OR ANY BLOOD THINNERS. NO FEVER OR RECENT ILLNESS PT IS UP TO DATE ON TETANUS VACCINATION PT WAS SEEN HERE LAST MONTH FOR EXACT SAME THING--HAD HIT HER HEAD AT THAT TIME THIS HAS OCCURRED SEVERAL TIMES--HAS GOTTEN UP IN THE MIDDLE OF THE NIGHT TO GO TO THE BATHROOM AND FELL ASLEEP ON THE TOILET AND FELL OFF. ONLY HAPPENS AT NIGHT, AND NEVER DURING THE DAY. PT STATES SHE "DOES NOT TAKE ANY SLEEPING PILLS OR SEDATING MEDICATIONS"--HOWEVER, PT HAS CARE HOME OPIATE USE, AND IS PRESCRIBED HYDROCODONE, WELL FLEXERIL, AND USES DAILY PCP: GOES TO [facility] FOR ALL MEDICAL CARE Allergies and Home Medications Allergies Coded Allergies: Penicillins (Verified Allergy, Unknown, Hives, 10/08/19) cephalexin (Verified Allergy, Unknown, Anaphylaxis, 10/08/19) metoclopramide (Verified Allergy, Unknown, 10/08/19) tramadol (Verified Allergy, Unknown, Itching, 10/08/19) Home Medications Allopurinol 100 Mg Tablet, 100 MG PO DAILY, (Reported) Amlodipine Besylate 5 Mg Tablet, 5 MG PO DAILY Prescribed by: MERCEDES MONET on 01/13/20 1608 Azithromycin 500 Mg Tablet, 500 MG PO DAILY Prescribed by: CASSIE SIERRA on 03/30/20 1079 Escitalopram Oxalate 10 Mg Tablet, 10 MG PO DAILY, (Reported) Hydrocodone/Acetaminophen 1 Each Tablet, 1 TAB PO Q6H Prescribed by: MERCEDES MONET on 01/13/20 1608 L. Acidophilus/Pectin, [place] 1 Each Capsule, 2 EACH PO QID Prescribed by: CASSIE SIERRA on 03/30/20358 Levofloxacin 500 Mg Tablet, 500 MG PO DAILY Prescribed by: CASSIE SIERRA on 03/30/20358 Levothyroxine Sodium 50 Mcg Tablet, 50 MCG PO DAILY, (Reported) Lisinopril 5 Mg Tablet, 5 MG PO DAILY, (Reported) Pantoprazole Sodium 40 Mg Tablet.dr, 40 MG PO DAILY Prescribed by: JOSTIN LEWIS on 10/15/19 1043 Potassium Gluconate 99 Mg Tablet, 99 MG PO DAILY, (Reported) Ropinirole HCl 0.5 Mg Tablet, 0.5 MG PO HS, (Reported) Sulfamethoxazole/Trimethoprim 1 Each Tablet, 1 EACH PO BID Prescribed by: CASSIE SIERRA on 05/18/20 0134 Patient Home Medication List Home Medication List Reviewed: Yes Review of Systems Constitutional: no symptoms reported EENTM: no symptoms reported Respiratory: no symptoms reported Cardiovascular: syncope (VS SIMPLY FALLING ASLEEP) Gastrointestinal: no symptoms reported Musculoskeletal: see HPI Skin: see HPI Psychiatric/Neurological: No Symptoms Reported Past Xvvrhry-Mlmzjz-Zvcghg Hx Past Med/Social Hx: Reviewed and Corrections made Patient Social History Alcohol Use: Denies Use Drug of Choice: DENIES Smoking Status: Current Everyday Smoker (1 PPD) Type Used: Cigarettes Recent Hopitalizations: No Immunizations Up To Date Tetanus Booster (TDap): Less than 5yrs PED Vaccines UTD: Yes Seasonal Allergies Seasonal Allergies: No Past Medical History Surgeries: Yes (c/s x3, TKR) Section, Hysterectomy, Joint Replacement, Orthopedic, Tonsillectomy Respiratory: No Cardiac: Yes Hypertension 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 oz. kg; 22.00 BMI Method: General Appearance: WD/WN, no apparent distress, thin Hand: Left (DORSAL ASPECT OF LEFT HAND AND WRIST--OVER 5TH METACARPAL AREA AND WRIST--WITH MODERATE BRUISING, SWELLING AND LACERATION . NO ACTIVE BLEEDING AT THIS TIME. MOTOR/SENSORY/VASCULAR INTACT. ) Neurologic/Tendon: normal sensation, normal motor functions, normal tendon functions Neurologic/Psychiatric: no motor/sensory deficits, alert, normal mood/affect, oriented x 3; No abnormal cerebellar tests Skin: normal color, warm/dry, ecchymosis ( NOTED ABOVE), other (LACERATION NOTED ABOVE) Procedures/Interventions Other Wound Location LEFT HAND Wound Length (cm): 2.5 Wound's Depth, Shape: linear, sub Q Wound Explored: clean Betadine Prep?: No (BETASEPT) Anesthesia: Lidocaine w/ Epi (2%) Suture: Ethlion, Vicryl Suture Size: 4-0 Number of Sutures: 8 Layer Closure?: 2 Number Deep Layer Sutures: 3 Sterile Dressing Applied?: Yes Progress DEEPER LAYERS SUTURED WITH #3 SUTURES OF 4-0 VICRYL SUPERFICIAL LAYERS AND SKIN CLOSED WITH #5 SUTURES OF 4-0 ETHILON Progress/Results/Core Measures Results/Orders My Orders Orders - CASSIE SIERRA DO Wrist, Left, 3 Views Or More (05/18/20 00:30) Hand, Left, 3 Views (05/18/20 00:30) Lidocaine/Epi 2% 1:100,000 (Xylocaine/Ep (05/18/20 00:30) Medications Given in ED Current Medications Medications Dose Ordered Sig/Maria G Route Start Time Stop Time Status Last Admin Dose Admin Lidocaine/ Epinephrine 20 ml ONCE ONCE INJ 05/18/20 00:30 05/18/20 00:31 DC 05/18/20 01:08 20 ML Vital Signs/I&O 05/18/20 00:30 Temp 36.5 Pulse 99 Resp 18 B/P (MAP) 133/66 (88) Pulse Ox 96 O2 Delivery Room Air Progress Progress Note : Progress Note UNEVENTFUL ER STAY PT STATES SHE CAN TAKE BACTRIM WITHOUT PROBLEMS Diagnostic Imaging Comments XRAYS LEFT HAND AND WRIST--NO ACUTE PROCESS, PENDING RADIOLOGIST REVIEW Reviewed: Reviewed by Me Departure Impression Primary Impression: left hand laceration and contusion Disposition: HOME, SELF-CARE Condition: Stable Departure-Patient Inst. Referrals: [facility] (PCP) Primary Care Physician RAI ROME APRN (Family) Primary Care Physician Patient Instructions: Laceration Repair With Stitches (DC) Add. Discharge Instructions: CLEAN WOUND TWICE A DAY WITH ANTIBACTERIAL SOAP AND WATER WITH A Q-TIP, OTHERWISE KEEP CLEAN AND DRY, COVER NEEDED TYLENOL AND MOTRIN NEEDED FOR PAIN ICE TO AREA AT 20 MINUTE INTERVALS SUTURES OUT IN 10 DAYS--RETURN TO ER FOR REMOVAL All discharge instructions reviewed with patient and/or family. Voiced understanding. Scripts Sulfamethoxazole/Trimethoprim (Bactrim Ds Tablet) 1 Each Tablet 1 EACH PO BID, #20 TAB Prov: CASSIE SIERRA DO 05/18/20 Images Extremities-Upper 1 - Ecchymosis, Laceration, Swelling, Tenderness CASSIE SIERRA DO May 18, 2020 00:39
[2020-05-18] MEDS ORDERED: SULF1TAB35 PO (01:34)
[2020-05-18 01:51] VITALS: BP 121/79
--- NOTE | 2020-05-18 05:08 | Diagnostic Imaging Report ---
INDICATION: Left wrist pain 3 views of the left wrist show no fracture, dislocation or other acute abnormalities. IMPRESSION: Negative left wrist Dictated by: Dictated on workstation # [id number]
--- NOTE | 2020-05-18 05:14 | Diagnostic Imaging Report ---
INDICATION: Left hand laceration 3 views of the left hand show some osteoarthritic changes of the distal interphalangeal joints of the thumb and fingers. There is no fracture, dislocation or radiopaque foreign object. IMPRESSION: Osteoarthritis Dictated by: Dictated on workstation # [id number]
== END 2020-05-18 01:51 | disposition home or self-care (01) ==
LOC: EDUNIT# 00:16 → ER 00:17
DX: S61.412A Laceration without foreign body of left hand, initial encounter (principal); I10 Essential (primary) hypertension; K21.9 Gastro-esophageal reflux disease without esophagitis; E89.0 Postprocedural hypothyroidism; F41.9 Anxiety disorder, unspecified; F32.9 Major depressive disorder, single episode, unspecified; F17.210 Nicotine dependence, cigarettes, uncomplicated; Z79.890 Hormone replacement therapy; Z79.899 Other long term (current) drug therapy; Z88.0 Allergy status to penicillin; Z88.1 Allergy status to other antibiotic agents; Z88.5 Allergy status to narcotic agent; Z88.8 Allergy status to other drugs, medicaments and biological substances; W18.12XA Fall from or off toilet with subsequent striking against object, initial encounter; Y92.002 Bathroom of unspecified non-institutional (private) residence as the place of occurrence of the external cause
CPT/HCPCS: 73110; 73130

== ENCOUNTER → 2020-07-06 | Outpatient (CLI) | payer BC ==
[~2020-07-06] MED LIST changes: +SULF1TAB35 PO
--- NOTE | 2020-07-06 19:21 | Diagnostic Imaging Report ---
PROCEDURE: CT head without contrast. TECHNIQUE: Multiple contiguous axial images were obtained through the brain without the use of intravenous contrast. Auto Exposure Controls were utilized during the CT exam to meet ALARA standards for radiation dose reduction. DATE: July 06, 2020. COMPARISON: CT head and cervical spine March 30, 2020. MRI brain August 14, 2014. INDICATION: 65-year-old female, injury. Hit posterior head. FINDINGS: There is a skin staple along the posterior scalp. There is no identified skull fracture. The ventricles and cerebral spinal fluid spaces are of normal size and configuration for the patient's age. There is no mass effect or midline shift. There is no acute intracranial hemorrhage. There is no abnormal extra-axial fluid collection. The visualized portions of the paranasal sinuses, mastoid air cells and middle ears are well aerated. IMPRESSION: 1. No identified acute intracranial abnormality. Dictated by: Dictated on workstation # [id number]
== END ==
LOC: RAD 18:44
PROVIDERS: ATTEND Nurse Practitioner Family
DX: S06.0X0A Concussion without loss of consciousness, initial encounter (principal); W01.0XXA Fall on same level from slipping, tripping and stumbling without subsequent striking against object, initial encounter
CPT/HCPCS: 70450

== ENCOUNTER → 2020-08-11 | Outpatient (CLI) | payer BC ==
[~2020-08-11] MED LIST changes: +CATHETER FLUSH 10 ML SYR IV PRN; +HOLD METFORMIN - RECEIVED CONTRAST 20 ML VIAL IV SCH; +IOHEXOL 350 MG/ML 100 ML (OMNIPAQUE 350) VIAL IV ONE; +NS 100 ML (IVPB) BAG IV ONE; +RT-ALBUTEROL SULF 2.5 MG/3 ML PRE-MIX VIAL INH ONE
[2020-08-11 09:26] LABS: CREATININE SERUM 0.75 MG/DL (0.60-1.30); GFR ESTIMATED > 60
[2020-08-11 09:27] LABS: BUN/CREATININE RATIO 24
--- NOTE | 2020-08-11 13:04 | Diagnostic Imaging Report ---
EXAMINATION: CT chest with intravenous contrast. TECHNIQUE: Multiple contiguous axial images were obtained through the chest after the uneventful administration of intravenous contrast. All CT scans use one or more of the following dose optimizing techniques: automated exposure control, MA and/or KvP adjustment based on patient size and exam type or iterative reconstruction. HISTORY: Cough. Syncopal episodes. COMPARISON: Chest radiograph on 03/30/2020. CT chest on 04/04/2014. FINDINGS: The heart size is within normal limits. No pericardial effusion is present. Small amount of atherosclerotic plaque is seen in the thoracic aorta without evidence of aneurysm or dissection. There is no mediastinal, hilar, or axillary lymphadenopathy. The lungs demonstrate no pulmonary nodules or masses. There are no focal areas of consolidation. No central endobronchial obstructing lesions are identified. There is no pleural effusion or pneumothorax. The osseous structures demonstrate no acute abnormalities. Limited views of the upper abdominal structures demonstrate no acute abnormalities. Both adrenal glands are unremarkable. IMPRESSION: 1. No acute abnormalities in the chest. No focal consolidation or suspicious pulmonary nodules. No pleural effusion. 2. Small amount of calcified aortic atherosclerotic plaque. No aneurysm or dissection. Dictated by: Dictated on workstation # [id number]
== END ==
LOC: RT 08:00
PROVIDERS: ATTEND Nurse Practitioner Family
DX: Z13.83 Encounter for screening for respiratory disorder NEC (principal); I70.0 Atherosclerosis of aorta; R05 Cough
CPT/HCPCS: 36415; 71260; 82565; 84520; 94060; 94726; 94729

== ENCOUNTER → 2020-10-12 | Outpatient (CLI) | payer BC ==
[~2020-10-12] MED LIST changes: -CATHETER FLUSH 10 ML SYR IV PRN; -HOLD METFORMIN - RECEIVED CONTRAST 20 ML VIAL IV SCH; -IOHEXOL 350 MG/ML 100 ML (OMNIPAQUE 350) VIAL IV ONE; -NS 100 ML (IVPB) BAG IV ONE; -RT-ALBUTEROL SULF 2.5 MG/3 ML PRE-MIX VIAL INH ONE; -SULF1TAB35 PO; +SULF1TAB38 PO
--- NOTE | 2020-10-12 10:52 | Diagnostic Imaging Report ---
INDICATION: Routine screening. COMPARISON: 08/26/2019. TECHNIQUE: 2D and 3D bilateral screening mammography was performed with CAD. FINDINGS: Scattered fibroglandular densities are identified bilaterally. There are scattered benign parenchymal and vascular calcifications bilaterally. No dominant mass or malignant-appearing microcalcifications are seen. The axillae are unremarkable. IMPRESSION: No mammographic features suspicious for malignancy are identified. ACR BI-RADS Category 2: Benign findings. Result letter will be mailed to the patient. Note: At least 10% of breast cancer is not imaged by mammography. Dictated by: Dictated on workstation # [id number]
== END ==
LOC: RAD 08:12
PROVIDERS: ATTEND Nurse Practitioner Family
DX: Z12.31 Encounter for screening mammogram for malignant neoplasm of breast (principal); Z00.00 Encounter for general adult medical examination without abnormal findings; Z76.0 Encounter for issue of repeat prescription; Z48.02 Encounter for removal of sutures; S61.412D Laceration without foreign body of left hand, subsequent encounter; F32.9 Major depressive disorder, single episode, unspecified; M10.9 Gout, unspecified; I10 Essential (primary) hypertension; J44.9 Chronic obstructive pulmonary disease, unspecified; M54.2 Cervicalgia; G89.29 Other chronic pain; X58.XXXD Exposure to other specified factors, subsequent encounter
CPT/HCPCS: 77063; 77067

== ENCOUNTER → 2020-10-12 | Outpatient (CLI) | payer BC | LOC: CARD 09:30 | PROVIDERS: ATTEND Internal Medicine Cardiovascular Disease | DX: R55 Syncope and collapse (principal) | CPT/HCPCS: 93225; 93226; 93306 ==

== ENCOUNTER → 2020-10-13 | Outpatient (CLI) | payer BC ==
[~2020-10-13] VITALS: Ht 154 cm; Wt 56.0 kg
[~2020-10-13] MED LIST changes: +CATHETER FLUSH 10 ML SYR IV PRN; +REGADENOSON 0.4 MG/5 ML SYR (LEXISCAN) IV ONE
[2020-10-13 12:25] VITALS: BP 164/95
--- NOTE | 2020-10-15 18:36 | STRESS TEST ---
DATE OF SERVICE: 10/13/2020 RESTING AND POST REGADENOSON TECHNETIUM-99M TETROFOSMIN SPECT CT IMAGING ORDERING PHYSICIAN: Dr. Forrest. PRIMARY PHYSICIAN: [facility]. Baseline images were carried out after injection of 10.54 mCi of technetium-99m Tetrofosmin. This was followed by 0.4 mg Regadenoson and 30.1 mCi of technetium-99m Tetrofosmin for stress imaging. The electrocardiogram showed sinus rhythm at baseline. It did not change significantly with the Regadenoson infusion. The patient tolerated the procedure well. Review of images at rest and following stress does not indicate any distinct perfusion defects consistent with significant myocardial ischemia or infarction. Gated images show normal global left ventricular systolic function with normal regional wall motion. Left ventricular ejection fraction is calculated to be 66%. Left ventricular end diastolic volume is 53 mL. TID is absent (1.04). CONCLUSIONS: 1. No evidence of any significant myocardial ischemia or infarction on this study. 2. Normal regional wall motion. 3. Normal global left ventricular systolic function with a calculated ejection fraction of 66%. Job ID: [id number] DocumentID: [id number] Dictated Date: 10/15/2020 17:09:25 Emulsion Operator Date: 10/15/2020 18:35:48 Dictated By: FABIÁN FORREST MD, MA, FACP, FACC, MTDD
== END ==
LOC: CARD 11:30
PROVIDERS: ATTEND Internal Medicine Cardiovascular Disease
DX: R55 Syncope and collapse (principal)
CPT/HCPCS: 78452; 93017; A9502

== ENCOUNTER 2020-11-05 17:09 | Inpatient (IN) | payer BC ==
[~2020-11-05] VITALS: Ht 157 cm; Wt 56.0 kg
[~2020-11-05 17:09] MED LIST changes: -CATHETER FLUSH 10 ML SYR IV PRN; -REGADENOSON 0.4 MG/5 ML SYR (LEXISCAN) IV ONE
--- OUTSIDE RECORDS SUMMARY | 2020-11-05 17:15 | XMS REPORT | Clinical Summary ---
Author Author [facility] Organization [facility] Address Unknown Phone Unavailable Care Team Providers Care Mixer And Scaler Name Role Phone PCP Unavailable Source Comments Some departments are not documenting in the electronic medical record. If you d o not see the information that you expected, contact [facility] [employer] department at [phone] for further assistan ce in locating additional records.[facility] Allergies Comments Active Allergy Reactions Severity Noted Date Azithromycin ITCHING Low 10/25/2019 Ibuprofen STOMACH UPSET Low 10/25/2019 Cephalexin SHORTNESS OF Medium 10/25/2019 BREATH Penicillins RASH Medium 10/25/2019 shakes Metoclopramide SEE COMMENTS Low 10/25/2019 Medications End Date Status Medication Sig Dispensed Refills Start Date Active acetaminophen/codeine Take 1 tablet 0 (TYLENOL #3) 300/30 mg by mouth tablet every 6 hours as needed for Pain. Max of 4,000 mg of acetaminophen in 24 hours. Active allopurinoL (ZYLOPRIM) Take 100 mg 0 100 mg tablet by mouth daily. Take with food. Active hzesrqvwwV-ddvxtvwowj-cum Take by 0 -cod [id number] mg cap mouth. Active cholecalciferol (VITAMIN Take 5,000 0 D-3) 5000 unit tablet Units by mouth daily. Active vitamins, B complex tab Take 1 tablet 0 by mouth daily. Active cyclobenzaprine Take 10 mg by 0 (FLEXERIL) 10 mg tablet mouth twice daily as needed for Muscle Cramps. Active fluticasone propionate Apply to 0 (FLONASE) 50 each nostril mcg/actuation nasal as directed spray, suspension daily. Shake bottle gently before using. Active furosemide (LASIX) 20 mg Take 20 mg by 0 tablet mouth every morning. Active levothyroxine (SYNTHROID) Take 50 mcg 0 50 mcg tablet by mouth daily 30 minutes before breakfast. Active omeprazole DR (PRILOSEC) Take 20 mg by 0 20 mg capsule mouth daily before breakfast. Active polyethylene glycol 3350 Take 17 g by 0 (MIRALAX) 17 g packet mouth daily. Active polysaccharide iron Take 150 mg 0 complex (FERREX 150) 150 by mouth mg iron capsule twice daily. Active potassium chloride Take 10 mEq 0 (MICRO-K) 10 mEq capsule by mouth daily. Take with a meal and a full glass of water. Active vitamins, w/iron Take 1 tablet 0 & folate 65/1 mg tab by mouth daily. Active rOPINIRole (REQUIP) 0.5 Take 0.5 mg 0 mg tablet by mouth twice daily. Active tretinoin (RETIN-A) 0.05 Apply 0 % topical cream topically to affected area at bedtime daily. Active escitalopram oxalate TAKE 1/2 15 tablet 0 10/28 (LEXAPRO) 20 mg tablet TABLET BY 0 MOUTH DAILY Active Problems Not on file Surgical History Surgery Date Site/Laterality Comments COLONOSCOPY FINGER TRIGGER RELEASE HX SECTION HX HYSTERECTOMY HX TONSILLECTOMY HX JOINT REPLACEMENT Medical History Medical History Date Comments Hyperlipidemia Osteoarthritis Chronic headache Depression Anemia Allergy GERD (gastroesophageal reflux disease) Gout History of stomach ulcers Social History Date Tobacco Use Types Packs/Day Years Used Current Every Day Smoker Smokeless Tobacco: Never Used Sex Assigned at Date Recorded Not on file Last Filed Vital Signs Reading Time Taken Comments Vital Sign 124/68 04/15/2019 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 Blood Pressure 68 04/15/2019 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 Pulse 36.4 C (97.6 F) 04/15/2019 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 Temperature 18 04/15/2019 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 Respiratory Rate 96% 04/15/2019 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 Oxygen Saturation - - Inhaled Oxygen Concentration 55.9 kg (123 lb 4 oz) 04/15/2019 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 Weight 156.2 cm (5' 1.5") 04/15/2019 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
[2020-11-05] MEDS ORDERED: ONDANSETRON 4 MG/2 ML (SDV) Z0FRAN ONE (17:22)
[2020-11-05] MEDS ORDERED: LORazepam INJ 2 MG/ML (ATIVAN) VIAL IVP STA (17:28)
[2020-11-05] MEDS ORDERED: LORazepam INJ 2 MG/ML (ATIVAN) VIAL ONE (17:29)
[2020-11-05] MEDS ORDERED: ONDANSETRON 4 MG/2 ML (SDV) Z0FRAN IVP ONE (17:30)
[2020-11-05 17:31] LABS: BASOPHILS % (AUTO) 0 % (0-10); EOSINOPHILS # (AUTO) 0.1 10^3/uL (0.0-0.3); EOSINOPHILS % (AUTO) 1 % (0-10); HEMATOCRIT 43 % (35-52); HEMOGLOBIN 13.7 g/dL (11.5-16.0); LYMPHOCYTES # (AUTO) 3.9 10^3/uL (1.0-4.0); LYMPHOCYTES % (AUTO) 34 % (12-44); MEAN CORPUSCULAR HEMOGLOBIN 32 pg (25-34); MEAN CORPUSCULAR HGB CONC 32 g/dL (32-36); MEAN CORPUSCULAR VOLUME 100 fL (80-99); MONOCYTES # (AUTO) 1.1 10^3/uL (0.0-1.0); MONOCYTES % (AUTO) 9 % (0-12); NEUTROPHILS # (AUTO) 6.4 10^3/uL (1.8-7.8); NEUTROPHILS % (AUTO) 55 % (42-75); PLATELET COUNT 425 10^3/uL (130-400); WHITE BLOOD COUNT 11.6 10^3/uL (4.3-11.0)
--- NOTE | 2020-11-05 17:35 | ED General ---
General Stated Complaint: HEAD INJURY Source of Information: Patient, Family () Exam Limitations: Other (TING ELIAS MD) History of Present Illness Date Seen by Provider: Nov 05, 2020 Time Seen by Provider: 17:18 Initial Comments Patient is a 65-year-old female who presents to the emergency department today with a chief complaint of altered mental status, nausea vomiting. relates that the patient had an episode of insomnia all night Monday night did not sleep. Was up cleaning all night. Slept most of the day yesterday but did have a fall and hit the right side of her face and right upper back. He states that she slept fairly well last night got up at 4 AM and was acting normally. Was able to cook and breakfast and was at her normal mental baseline. He states he left at noon to go to work and tried to call her around for to check on her. He said she was going back to sleep. He states when he could not get a hold of her after 15 or 20 minutes he went home and found her acting strangely, jerking movements, nausea vomiting, not answering questions appropriately. She is not on any blood thinning agents. She has a history of hypertension and thyroid disease she is also on baclofen and as needed Phenergan. She denies a history of alcohol use. She does take daily opiates for chronic pain. She is a smoker. She is Covid vaccinated. No recent illnesses reported. states that she had a mild headache last night before bed. She is having a difficult time staying focused and answering questions. She denies a current headache. She is nauseated. Denies any complaints of pain. She appears dizzy and ataxic. She does not have nystagmus. She is having a hard time following directions. Review of systems obtained from the otherwise negative except as stated above. Timing/Duration: 4-6 Hours Severity: Severe Associated Systoms: Nausea/Vomiting (TING ELIAS MD) Initial Comments Patient had a pretty bad headache for the past day and it has intermittently come and gone during my interview with her. She had poor sleep for the past day according to her . She does not think that she took any extra medications for her headache or mixed up her medications from home. She does take Lexapro. (CORI RICE) Allergies and Home Medications Allergies Coded Allergies: Penicillins (Verified Allergy, Unknown, Hives, 10/08/19) cephalexin (Verified Allergy, Unknown, Anaphylaxis, 10/08/19) metoclopramide (Verified Allergy, Unknown, 10/08/19) tramadol (Verified Allergy, Unknown, Itching, 10/08/19) Patient Home Medication List Home Medication List Reviewed: Yes (CORI RICE) Allopurinol (Allopurinol) 100 Mg Tablet, 100 MG PO DAILY, (Reported) Entered as Reported by: DEONTE GOOD on 10/08/19 1528 Amlodipine Besylate (Amlodipine Besylate) 5 Mg Tablet, 5 MG PO DAILY Prescribed by: MERCEDES MONET on 01/13/20 1608 Azithromycin (Zithromax) 500 Mg Tablet, 500 MG PO DAILY Prescribed by: CASSIE SIERRA on 03/30/20 035 Escitalopram Oxalate (Lexapro) 10 Mg Tablet, 10 MG PO DAILY, (Reported) Entered as Reported by: DEONTE GOOD on 10/08/19 1528 Hydrocodone/Acetaminophen (Hydrocodone/Acetaminophen 5 MG/325 MG TAB) 1 Each Tablet, 1 TAB PO Q6H Prescribed by: MERCEDES MONET on 01/13/20 1608 L. Acidophilus/Pectin, Larke (Acidophilus Capsule) 1 Each Capsule, 2 EACH PO QID Prescribed by: CASSIE SIERRA on 03/30/20 035 Levofloxacin (Levofloxacin) 500 Mg Tablet, 500 MG PO DAILY Prescribed by: CASSIE SIERRA on 03/30/20358 Levothyroxine Sodium (Levothyroxine Sodium) 50 Mcg Tablet, 50 MCG PO DAILY, (Reported) Entered as Reported by: DEONTE GOOD on 10/08/19 1528 Lisinopril (Lisinopril) 5 Mg Tablet, 5 MG PO DAILY, (Reported) Entered as Reported by: DEONTE GOOD on 10/08/19 1528 Pantoprazole Sodium (Protonix) 40 Mg Tablet.dr, 40 MG PO DAILY Prescribed by: JOSTIN LEWIS on 10/15/19 1043 Potassium Gluconate (Potassium) 99 Mg Tablet, 99 MG PO DAILY, (Reported) Entered as Reported by: DEONTE GOOD on 10/08/19 1528 Ropinirole HCl (Ropinirole HCl) 0.5 Mg Tablet, 0.5 MG PO HS, (Reported) Entered as Reported by: DEONTE GOOD on 10/08/19 1528 Sulfamethoxazole/Trimethoprim (Bactrim Ds Tablet) 1 Each Tablet, 1 EACH PO BID Prescribed by: CASSIE SIERRA on 05/18/20 0134 Review of Systems Review of Systems Constitutional: see HPI, diaphoresis EENTM: no symptoms reported Respiratory: no symptoms reported Cardiovascular: no symptoms reported Gastrointestinal: nausea, vomiting Musculoskeletal: no symptoms reported Skin: other (Bruising to the right side of the face, bruising to the right flank mid back) Psychiatric/Neurological: Tremors (TING ELIAS MD) All Other Systems Reviewed Negative Unless Noted: Yes (TING ELIAS MD) Past Jolgrtm-Bqjyra-Ubmqnn Hx Immunizations Up To Date Tetanus Booster (TDap): Less than 5yrs PED Vaccines UTD: Yes (TING ELIAS MD) Seasonal Allergies Seasonal Allergies: No (TING ELIAS MD) Past Medical History Surgeries: Yes (c/s x3, TKR) Section, Hysterectomy, Joint Replacement, Orthopedic, Tonsillectomy Respiratory: No Cardiac: Yes Hypertension 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 Genitourinary: No Gastrointestinal: Yes Gastroesophageal Reflux, Chronic Diarrhea Musculoskeletal: Yes (joint pain; RESTLESS LEG SYNDROME; KNEE REPLACEMENT;CHRONIC OPIATE USE) Arthritis, Chronic Back Pain Endocrine: Yes Hypothyroidsim HEENT: No Cancer: No Psychosocial: Yes Anxiety, Depression Integumentary: No Blood Disorders: Yes (CHRONIC ANEMIA) (TING ELIAS MD) Physical Exam Vital Signs Vital Signs - First Documented 11/05/20 17:35 Temp 35.6 Pulse 104 Resp 18 B/P (MAP) 162/79 (106) Pulse Ox 97 (CORI RICE) Vital Signs Capillary Refill : (TING ELIAS MD) Height, Weight, BMI Height: '" Weight: lbs. oz. kg; 23.61 BMI Method: General Appearance: WD/WN, Anxious, Moderate Distress Eyes: Bilateral Eye Normal Inspection, Bilateral Eye PERRL, Bilateral Eye EOMI (no obvious nystagmus) HEENT: PERRL/EOMI Neck: Normal Inspection Respiratory: Lungs Clear, Normal Breath Sounds, No Accessory Muscle Use, No Respiratory Distress Cardiovascular: Regular Rate, Rhythm, Normal Peripheral Pulses Gastrointestinal: Non Tender, Soft Back: Other (hematoma right flank) Extremity: Normal Capillary Refill, Normal Inspection, Normal Range of Motion, Non Tender, No Calf Tenderness Neurologic/Psychiatric: Alert, No Motor/Sensory Deficits, Disoriented, Other (disoriented to HPI but oriented to self and situation. unable to tell me the year) Skin: Normal Color, Warm/Dry, Ecchymosis (right face) (TING ELIAS MD) Focused Exam Lactate Level 11/05/20 18:34: Lactic Acid Level 0.66 (CORI RICE) Lactic Acid Level Laboratory Tests Test 11/05/20 18:34 Lactic Acid Level 0.66 MMOL/L (0.50-2.00) (CORI RICE) Procedures/Interventions Suture Size: 4-0 (TING ELIAS MD) Discussed Risk,Benefits: Yes Patient Consents: Yes (Has been signed and patient verbally agreed) Position: Lying, L4-5, Left Sterile Technique: Yes Opening Pressure: 11 cmH2O Fluid Color: Straw Size of Disposal Tray Used: Adult Champagne tap (CORI RICE) Progress/Results/Core Measures Suspected Sepsis SIRS Temperature: Pulse: Respiratory Rate: Laboratory Tests 11/05/20 17:20: White Blood Count 11.6H Blood Pressure / Mean: Laboratory Tests 11/05/20 17:20: Creatinine 1.31H, INR Comment 0.9, Platelet Count 425H, Total Bilirubin 0.3 (TING ELIAS MD) Results/Orders Lab Results Laboratory Tests Test 11/05/20 17:20 11/05/20 17:21 11/05/20 18:01 11/05/20 18:34 Range/Units White Blood Count 11.6 H 4.3-11.0 10^3/uL Red Blood Count 4.24 3.80-5.11 10^6/uL Hemoglobin 13.7 11.5-16.0 g/dL Hematocrit 43 35-52 % Mean Corpuscular Volume 100 H 80-99 fL Mean Corpuscular Hemoglobin 32 25-34 pg Mean Corpuscular Hemoglobin Concent 32 32-36 g/dL Red Cell Distribution Width 12.6 10.0-14.5 % Platelet Count 425 H 130-400 10^3/uL Mean Platelet Volume 9.0 9.0-12.2 fL Immature Granulocyte % (Auto) 0 % Neutrophils (%) (Auto) 55 42-75 % Lymphocytes (%) (Auto) 34 12-44 % Monocytes (%) (Auto) 9 0-12 % Eosinophils (%) (Auto) 1 0-10 % Basophils (%) (Auto) 0 0-10 % Neutrophils # (Auto) 6.4 1.8-7.8 10^3/uL Lymphocytes # (Auto) 3.9 1.0-4.0 10^3/uL Monocytes # (Auto) 1.1 H 0.0-1.0 10^3/uL Eosinophils # (Auto) 0.1 0.0-0.3 10^3/uL Basophils # (Auto) 0.0 0.0-0.1 10^3/uL Immature Granulocyte # (Auto) 0.0 0.0-0.1 10^3/uL Prothrombin Time 12.9 12.2-14.7 SEC INR Comment 0.9 0.8-1.4 Sodium Level 141 135-145 MMOL/L Potassium Level 4.1 3.6-5.0 MMOL/L Chloride Level 105 98-107 MMOL/L Carbon Dioxide Level 18 L 21-32 MMOL/L Anion Gap 18 H 5-14 MMOL/L Blood Urea Nitrogen 32 H 7-18 MG/DL Creatinine 1.31 H 0.60-1.30 MG/DL Estimat Glomerular Filtration Rate 40 BUN/Creatinine Ratio 24 Glucose Level 137 H 70-105 MG/DL Calcium Level 10.0 8.5-10.1 MG/DL Corrected Calcium 8.5-10.1 MG/DL Total Bilirubin 0.3 0.1-1.0 MG/DL Aspartate Amino Transf (AST/SGOT) 23 5-34 U/L Alanine Aminotransferase (ALT/SGPT) 21 0-55 U/L Alkaline Phosphatase 90 40-136 U/L C-Reactive Protein High Sensitivity 0.41 0.00-0.50 MG/DL Total Protein 7.5 6.4-8.2 GM/DL Albumin 4.6 H 3.2-4.5 GM/DL Procalcitonin 0.12 H <0.10 NG/ML Serum Alcohol < 10 <10 MG/DL Glucometer 154 H 70-110 MG/DL Urine Color YELLOW Urine Clarity CLEAR Urine pH 6.0 5-9 Urine Specific [place] >=1.030 1.016-1.022 Urine Protein TRACE H NEGATIVE Urine Glucose (UA) NEGATIVE NEGATIVE Urine Ketones 1+ H NEGATIVE Urine Nitrite NEGATIVE NEGATIVE Urine Bilirubin NEGATIVE NEGATIVE Urine Urobilinogen 0.2 < = 1.0 MG/DL Urine Leukocyte Esterase NEGATIVE NEGATIVE Urine RBC (Auto) NEGATIVE NEGATIVE Urine RBC 0-2 /HPF Urine WBC 2-5 /HPF Urine Crystals PRESENT H /LPF Urine Amorphous Sediment MOD SENTHIL URATES H /LPF Urine Bacteria TRACE /HPF Urine Casts PRESENT /LPF Urine Hyaline Casts 10-25 H /LPF Urine Mucus NEGATIVE /LPF Urine Culture Indicated NO Urine Opiates Screen POSITIVE H NEGATIVE Urine Oxycodone Screen POSITIVE H NEGATIVE Urine Methadone Screen NEGATIVE NEGATIVE Urine Propoxyphene Screen NEGATIVE NEGATIVE Urine Barbiturates Screen NEGATIVE NEGATIVE Ur Tricyclic Antidepressants Screen NEGATIVE NEGATIVE Urine Phencyclidine Screen NEGATIVE NEGATIVE Urine Amphetamines Screen NEGATIVE NEGATIVE Urine Methamphetamines Screen NEGATIVE NEGATIVE Urine Benzodiazepines Screen NEGATIVE NEGATIVE Urine Cocaine Screen NEGATIVE NEGATIVE Urine Cannabinoids Screen NEGATIVE NEGATIVE Lactic Acid Level 0.66 0.50-2.00 MMOL/L Test 11/05/20 18:57 Range/Units CSF Tube Number 4 CSF Appearance CLEAR CSF Color COLORLESS CSF WBC 3.3 0-5 CELLS CSF RBC 3.89 H 0-0 CELLS CSF Lymphocytes % CSF Mononuclear WBCs % CSF Polynuclear WBCs % CSF Glucose 80 50-80 MG/DL CSF Total Protein 38 15-40 MG/DL (CORI RICE) My Orders Orders - CORI RICE Csf Cell Count (11/05/20 19:05) Csf Glucose (11/05/20 19:05) Csf Total Protein (11/05/20 19:05) Csf Culture (11/05/20 19:05) (CORI RICE) Medications Given in ED Current Medications Medications Dose Ordered Sig/Maria G Route Start Time Stop Time Status Last Admin Dose Admin Ondansetron HCl 8 mg ONCE ONCE IVP 11/05/20 17:30 11/05/20 17:31 DC 11/05/20 17:51 8 MG (CORI RICE) Vital Signs/I&O 11/05/20 17:35 Temp 35.6 Pulse 104 Resp 18 B/P (MAP) 162/79 (106) Pulse Ox 97 (CORI RICE) Vital Signs/I&O Capillary Refill : (TING ELIAS MD) Progress Note : Time: 17:35 Progress Note blood sugar 154 (TING ELIAS MD) Progress Note : Time: 19:10 Progress Note Concern for a toxic syndrome. I did assume care of the patient at shift change and I agree with Dr. Elias's history and physical exam. We reviewed her labs and imaging. I asked the family about possibility of an accidental or intentional overdose dose and he does not think intentional would be likely all as she is had no problems to indicate this. She been trying to get in for a sleep study recently and has had a lot of problems with insomnia. With her vomiting sweating psychomotor agitation delirium serotonergic syndrome is a possibility. Also a viral meningitis is possible. We added a procalcitonin and a CRP as well as blood cultures and got a lumbar puncture with cell studies. She declined pain medicine for headache at this time. (CORI RICE) Diagnostic Imaging Comments [facility] [place], [place] NAME: LISANDRA LEONARD [facility] REC#: [id number] PT STATUS: REG ER : 1955 PHYSICIAN: ASHLEY JETT DIRECTOR INFORMATION SECURITY ADMIT DATE: 11/05/20/ER Draft Date of Exam:11/05/20 CT HEAD/CERVICAL SPINE WO PROCEDURE: CT head and CT cervical spine without contrast. TECHNIQUE: Multiple contiguous axial images were obtained through the brain and cervical spine without the use of intravenous contrast. Sagittal and coronal reformations through the cervical spine were then performed. Auto Exposure Controls were utilized during the CT exam to meet ALARA standards for radiation dose reduction. INDICATION: Head injury, pain. COMPARISON: 07/06/2020 and 03/30/2020. FINDINGS: No intracranial hemorrhage. No intracranial mass, mass effect, midline shift, herniation, hydrocephalus or extra axial fluid collection. Chronic lacunar infarction versus dilated perivascular space within the inferior right basal ganglia is again identified. No CT evidence of an acute ischemic infarction. The orbits are unremarkable. Mild background vascular calcifications. The visualized paranasal sinuses are clear. The calvarium and extracalvarial soft tissues are unremarkable. Straightening of the normal cervical lordosis without significant anterolisthesis or retrolisthesis. Alignment of the atlantooccipital joint is well maintained. Mild scattered endplate degenerative changes. No evidence of a recent vertebral body compression deformity. Moderate disc space height loss at C5/C6 with associated peripherally calcified disc bulge. No acute fracture or dislocation. No destructive osseous process. Scattered facet joint degenerative changes and uncovertebral joint hypertrophy are present. No apical pneumothorax. Paraspinal soft tissues are unremarkable. IMPRESSION: 1. No acute intracranial abnormality. 2. No acute osseous abnormality within the cervical spine with scattered degenerative changes, by far greatest at C5/C6. 3. Straightening of normal cervical lordosis, which may simply be positional, though can also relate to muscle spasm. Dictated on workstation # [id number] Dict: 11/05/20 1745 Trans: 11/05/20 1800 PJE [id number] Interpreted by: CHEKO SMITH MD Electronically signed by: [facility], [place] NAME: LISANDRA LEONARD [facility] REC#: [id number] PT STATUS: REG ER : 1955 PHYSICIAN: ASHLEY JETT APRN ADMIT DATE: 11/05/20/ER Draft Date of Exam:11/05/20 CHEST 1 VIEW, AP/PA ONLY INDICATION: Fall, pain. COMPARISON: March 30, 2020. TECHNIQUE: Single radiograph of the chest dated November 05, 2020. FINDINGS: The cardiac silhouette is within normal limits in size. No significant pulmonary vascular congestion. The lungs are clear. No pleural effusion. No pneumothorax. No acute osseous abnormality. IMPRESSION: No acute cardiopulmonary abnormality. Dictated on workstation # [id number] Dict: 11/05/201749 Trans: 11/05/201754 PJE [id number] Interpreted by: CHEKO SMITH MD Electronically signed by: (TING ELIAS MD) Diagonstic Imaging: Xray, CT Plain Films/CT/US/NM/MRI: chest, head Reviewed: Reviewed by Me (CORI RICE) Departure Communication (Admissions) Time/Spoke to Admitting Phy: 20:[address] Hilton and she agrees to admit the patient with a repeat CT in the morning to rule out subarachnoid hemorrhage. (CORI RICE) Impression Primary Impression: Psychomotor agitation Additional Impressions: Delirium Serotonin neurotoxicity Qualified Codes: T50.994A - Poisoning by other drugs, medicaments and biological substances, undetermined, initial encounter Dehydration Fall Qualified Codes: W19.XXXA - Unspecified fall, initial encounter Contusion of head Qualified Codes: S00.83XA - Contusion of other part of head, initial encounter Contusion of rib on right side Qualified Codes: S20.211A - Contusion of right front wall of thorax, initial encounter Disposition: ADMITTED INPATIENT Condition: Stable Admissions Decision to Admit Reason: Admit from ER (General) Decision to Admit/Date: Nov 05, 2020 Time/Decision to Admit Time: 19:14 (CORI RICE) Departure-Patient Inst. Referrals: [facility] (PCP/Family) Primary Care Physician TING ELIAS MD Nov 05, 2020 17:35 CORI RICE Nov 05, 2020 19:15
[2020-11-05 17:42] LABS: ALBUMIN 4.6 GM/DL (3.2-4.5); CHLORIDE 105 MMOL/L (98-107); POTASSIUM 4.1 MMOL/L (3.6-5.0); SODIUM 141 MMOL/L (135-145)
[2020-11-05 17:45] LABS: GLUCOSE 137 MG/DL (70-105); TOTAL PROTEIN 7.5 GM/DL (6.4-8.2)
[2020-11-05 17:46] LABS: CARBON DIOXIDE 18 MMOL/L (21-32); INR 0.9 (0.8-1.4); PROTHROMBIN TIME PATIENT 12.9 SEC (12.2-14.7)
[2020-11-05 17:47] LABS: BILIRUBIN,TOTAL 0.3 MG/DL (0.1-1.0)
[2020-11-05 17:48] LABS: ALKALINE PHOSPHATASE 90 U/L (40-136)
[2020-11-05 17:49] LABS: CREATININE SERUM 1.31 MG/DL (0.60-1.30); GFR ESTIMATED 40
[2020-11-05 17:50] LABS: BUN/CREATININE RATIO 24
[2020-11-05 17:51] LABS: ALANINE AMINOTRANSFERASE 21 U/L (0-55)
--- NOTE | 2020-11-05 17:57 | Diagnostic Imaging Report ---
INDICATION: Fall, pain. COMPARISON: March 30, 2020. TECHNIQUE: Single radiograph of the chest dated November 05, 2020. FINDINGS: The cardiac silhouette is within normal limits in size. No significant pulmonary vascular congestion. The lungs are clear. No pleural effusion. No pneumothorax. No acute osseous abnormality. IMPRESSION: No acute cardiopulmonary abnormality. Dictated by: Dictated on workstation # [id number]
--- NOTE | 2020-11-05 18:00 | Diagnostic Imaging Report ---
PROCEDURE: CT head and CT cervical spine without contrast. TECHNIQUE: Multiple contiguous axial images were obtained through the brain and cervical spine without the use of intravenous contrast. Sagittal and coronal reformations through the cervical spine were then performed. Auto Exposure Controls were utilized during the CT exam to meet ALARA standards for radiation dose reduction. INDICATION: Head injury, pain. COMPARISON: 07/06/2020 and 03/30/2020. FINDINGS: No intracranial hemorrhage. No intracranial mass, mass effect, midline shift, herniation, hydrocephalus or extra axial fluid collection. Chronic lacunar infarction versus dilated perivascular space within the inferior right basal ganglia is again identified. No CT evidence of an acute ischemic infarction. The orbits are unremarkable. Mild background vascular calcifications. The visualized paranasal sinuses are clear. The calvarium and extracalvarial soft tissues are unremarkable. Straightening of the normal cervical lordosis without significant anterolisthesis or retrolisthesis. Alignment of the atlantooccipital joint is well maintained. Mild scattered endplate degenerative changes. No evidence of a recent vertebral body compression deformity. Moderate disc space height loss at C5/C6 with associated peripherally calcified disc bulge. No acute fracture or dislocation. No destructive osseous process. Scattered facet joint degenerative changes and uncovertebral joint hypertrophy are present. No apical pneumothorax. Paraspinal soft tissues are unremarkable. IMPRESSION: 1. No acute intracranial abnormality. 2. No acute osseous abnormality within the cervical spine with scattered degenerative changes, by far greatest at C5/C6. 3. Straightening of normal cervical lordosis, which may simply be positional, though can also relate to muscle spasm. Dictated by: Dictated on workstation # [id number]
[2020-11-05 18:10] LABS: BILIRUBIN,URINE NEGATIVE (NEGATIVE); CLARITY,URINE CLEAR; COLOR,URINE YELLOW; GLUCOSE, URINE (UA) NEGATIVE (NEGATIVE); KETONES,URINE 1+ (NEGATIVE); LEUKOCYTE ESTERASE ,URINE NEGATIVE (NEGATIVE); NITRITE,URINE NEGATIVE (NEGATIVE); PROTEIN,URINE TRACE (NEGATIVE)
[2020-11-05] MEDS ORDERED: NS IV 1000 ML 1,000 ML IV SCH (18:15)
[2020-11-05 18:33] LABS: AMORPHOUS SEDIMENT,UR MOD AMOR URATES /LPF; BACTERIA,URINE TRACE /HPF; RBC,URINE 0-2 /HPF
[2020-11-05 18:40] LABS: AMPHETAMINE SCREEN, URINE NEGATIVE (NEGATIVE); BENZODIAZEPINES SCREEN URINE NEGATIVE (NEGATIVE); COCAINE SCREEN URINE NEGATIVE (NEGATIVE); METHAMPHETAMINE SCREEN URINE S NEGATIVE (NEGATIVE)
[2020-11-05 18:41] LABS: BARBITURATE SCREEN URINE NEGATIVE (NEGATIVE); CANNABINOID SCREEN, URINE NEGATIVE (NEGATIVE); METHADONE STAT NEGATIVE (NEGATIVE); OPIATE SCREEN URINE POSITIVE (NEGATIVE); OXYCODONE STAT POSITIVE (NEGATIVE); PROPOXYPHENE STAT NEGATIVE (NEGATIVE); TRICYCLIC ANTIDEPRESSANTS SCRE NEGATIVE (NEGATIVE)
[2020-11-05 19:30] LABS: CSF GLUCOSE 80 MG/DL (50-80); CSF TOTAL PROTEIN 38 MG/DL (15-40)
[2020-11-05 19:42] LABS: APPEARANCE,CSF CLEAR; COLOR,CSF COLORLESS; CSF TUBE NUMBER 4; RED BLOOD CELL,CSF 3.89 CELLS (0-0); WHITE BLOOD CELL,CSF 3.3 CELLS (0-5)
[2020-11-05] MEDS ORDERED: ACETAMINOPHEN 650 MG SUPP (TYLENOL) PR PRN (22:00)
[2020-11-05] MEDS: LACTATED RINGERS 1,000 ML IV SCH (22:38)
[2020-11-05] MEDS: ACETAMINOPHEN 325 MG TABLET PO PRN (22:39)
[2020-11-05] MEDS: ONDANSETRON 4 MG/2 ML (SDV) Z0FRAN IV PRN (22:39)
[2020-11-05] MEDS: LORazepam INJ 2 MG/ML (ATIVAN) VIAL IV PRN (22:39)
[2020-11-06 04:00] VITALS: BP 115/64
[2020-11-06] MEDS: LORazepam INJ 2 MG/ML (ATIVAN) VIAL IV PRN ×3 (05:45→22:01)
[2020-11-06 05:57] LABS: BASOPHILS % (AUTO) 0 % (0-10); EOSINOPHILS # (AUTO) 0.1 10^3/uL (0.0-0.3); EOSINOPHILS % (AUTO) 1 % (0-10); HEMATOCRIT 37 % (35-52); HEMOGLOBIN 11.9 g/dL (11.5-16.0); LYMPHOCYTES # (AUTO) 2.6 10^3/uL (1.0-4.0); LYMPHOCYTES % (AUTO) 41 % (12-44); MEAN CORPUSCULAR HEMOGLOBIN 33 pg (25-34); MEAN CORPUSCULAR HGB CONC 32 g/dL (32-36); MEAN CORPUSCULAR VOLUME 102 fL (80-99); MONOCYTES # (AUTO) 0.7 10^3/uL (0.0-1.0); MONOCYTES % (AUTO) 10 % (0-12); NEUTROPHILS % (AUTO) 48 % (42-75); PLATELET COUNT 302 10^3/uL (130-400); WHITE BLOOD COUNT 6.3 10^3/uL (4.3-11.0)
[2020-11-06 06:11] LABS: POTASSIUM 4.5 MMOL/L (3.6-5.0)
[2020-11-06 06:17] LABS: CREATININE SERUM 0.72 MG/DL (0.60-1.30)
[2020-11-06] MEDS: LACTATED RINGERS 1,000 ML IV SCH ×3 (06:58→22:01)
[2020-11-06] MEDS: ACETAMINOPHEN 325 MG TABLET PO PRN (07:01)
--- NOTE | 2020-11-06 07:56 | Diagnostic Imaging Report ---
PROCEDURE: CT head without contrast. TECHNIQUE: Multiple contiguous axial images were obtained through the brain without the use of intravenous contrast. Auto Exposure Controls were utilized during the CT exam to meet ALARA standards for radiation dose reduction. INDICATION: Headache. Psychomotor agitation. Suspected serotonin syndrome. COMPARISON: CT head without contrast 11/05/2020. FINDINGS: No intracranial hemorrhage, mass effect, hydrocephalus or extra-axial fluid collections. No CT evidence of a territorial infarction. Osseous structures are intact. Visualized paranasal sinuses and mastoids are clear. IMPRESSION: No acute intracranial CT findings. Dictated by: Dictated on workstation # [id number]
[2020-11-06 08:00] VITALS: BP 140/81
[2020-11-06] MEDS: ONDANSETRON 4 MG/2 ML (SDV) Z0FRAN IV PRN (08:08)
[2020-11-06] MEDS: IBUPROFEN 800 MG (MOTRIN) TAB PO PRN ×2 (08:15→17:16)
--- NOTE | 2020-11-06 08:18 | Diagnostic Imaging Report ---
INDICATION: Right rib pain. AP and oblique views of the right ribs are obtained. No fracture or acute bony abnormality is seen. There is no underlying pneumothorax or pleural fluid. IMPRESSION: Negative right ribs. No change from 08/09/2015. Dictated by: Dictated on workstation # [id number]
--- NOTE | 2020-11-06 08:40 | History & Physical ---
CLARE AUGUSTIN 11/06/20 0840: HPI History of Present Illness: Niki is a 65yo F hospitalized for suspected sepsis after arriving to the ER disoriented and shaking. According to the patient's , the patient woke up morning and cooked breakfast and then went back to bed, came back to check on her at lunch and she was still in bed sleeping, went back to work and then when did not respond to any calls he came back home and found her in bed extremely disoriented, not able to form full sentences. The patient reports that she remembers waking up and not being able to brush her hair, vomiting, blacking out and falling multiple times, and feeling very weak. In the past two months the patient has had two falls where she blacked out and fell. Dr. Forrest is doing a work up on her past two falls. Patient is in the process of setting up a sleep study. The patient says they are feeling jittery and have been since last night, says none of her medication has been helping to get rid of the jittery feeling. Source: patient Exam Limitations: clinical condition (Patient does not have a lot of memory from what happened yesterday) Date seen by provider: Nov 06, 2020 Attending Physician Salazar Hilton MD [facility] [place] Consult Date of Admission Nov 05, 2020 at 19:30 Home Medications Home Medications Reviewed patient Home Medication Reconciliation performed by pharmacy medication reconciliations weight reducing technician and/or nursing. Patients Allergies have been reviewed. Allergies Coded Allergies: Penicillins (Verified Allergy, Unknown, Hives, 10/08/19) cephalexin (Verified Allergy, Unknown, Anaphylaxis, 10/08/19) metoclopramide (Verified Allergy, Unknown, 10/08/19) tramadol (Verified Allergy, Unknown, Itching, 10/08/19) SOU-Ukxhmy-Infmpx Hx Patient Social History Marrital Status: Number of Children: 3 Number of living children: 3 Drug of Choice: DENIES Smoking Status: Current Everyday Smoker Cigaretts per day: 20 2nd Hand Smoke Exposure: No Recent Hopitalizations: No Physical Abuse Screen: No Sexual Abuse: No Alcohol Use?: No Tobacco type used: Cigarettes Have you traveled recently?: No Immunizations Up To Date Tetanus Booster (TDap): Less than 5yrs Date of Influenza Vaccine: Nov 07, 2019 Past Medical History Anxiety Restless leg syndrome Hypothyroidism Surgery: 3 C-sections Hysterectomy Knee surgery Family Medical History Significant Family History: Cancer, CAD Over 55 Years Old Other Significan Family Hx: Sister has breast cancer and has had two strokes Review of Systems ([facility]) Constitutional: No dizziness; weakness EENTM: No hearing loss, No blurred vision, No double vision, No vision loss (Cough started last night), No nose congestion, No throat pain Respiratory: cough; No short of breath Cardiovascular: No chest pain, No palpitations Gastrointestinal: No abdominal pain; constipation (Chronic condition), loss of appetite Genitourinary: No decreased output, No dysuria : No Musculoskeletal: back pain (Tail bone pain that hs been assessed by primary) Skin: no symptoms reported Psychiatric/Neurological: Numbness (Tips of fingers have felt numb but hasn't lost sensation); Denies Tingling, Denies Tremors Reviewed Test Results Reviewed Test Results Lab CSF fluid was analyzed and RBC were found, VDRL and Enterovirus results aren't back. HSV and Syphilis serology still pending. Radiology Head CT and chest X-ray did not show any abnormalities and a repeat head CT and X-ray of the ribs did not show any abnormalities Physical Exam-([facility]) Physical Exam Vital Signs VS - Last 72 Hours, by Label 11/05/20 11/05/20 11/05/20 11/06/20 17:35 21:35 22:11 00:00 Temp 35.6 35.6 Pulse 104 84 64 Resp 18 14 B/P (MAP) 162/79 (106) 122/61 Pulse Ox 97 97 O2 Delivery Room Air Room Air 11/06/20 11/06/20 11/06/20 11/06/20 01:00 04:00 04:00 07:00 Pulse 62 87 63 Resp 26 B/P (MAP) 115/64 (81) Pulse Ox 92 O2 Delivery Room Air Room Air 11/06/20 11/06/20 11/06/20 11/06/20 07:26 08:00 12:00 16:00 Temp 36.6 37.1 37.0 Pulse 75 86 76 Resp 22 18 16 B/P (MAP) 140/81 (100) 126/56 (79) 107/63 (78) Pulse Ox 91 93 93 O2 Delivery Room Air Room Air Room Air Room Air Capillary Refill : Less Than 3 Seconds General Appearance: no apparent distress Eyes: Bilateral Eye PERRL HEENT: normal ENT inspection Neck: limited range of motion (Can rotate the head farther to the right than the left), tender lateral Respiratory: chest non-tender, lungs clear, normal breath sounds, no respiratory distress Cardiovascular: regular rate, rhythm Extremities: normal range of motion, non-tender 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 Waiting on serology and CSF results for possible viral cause. Patient will be following up with Dr. Forrest for cardiology. (2) Fall Status: Acute Assessment & Plan: Patient has had falls before and is already having these investigated by cardiology. Qualifiers: Qualified Codes: W19.XXXA - Unspecified fall, initial encounter (3) Acute kidney injury Onset Date: ~ 11/05/2020 Status: Acute Assessment & Plan: Creatinine improved from 1.31 yesterday to 0.72 today. 1000 ml IV Nl saline will continue to be given to prevent dehydration. (4) Anxiety Status: Chronic Assessment & Plan: Home Escitalopram was discontinued. Lorazepam 0.5 mg was begun. (5) Restless leg syndrome Status: Chronic (6) COPD (chronic obstructive pulmonary disease) Status: Chronic Assessment & Plan: No signs of COPD exasperation. Restart Baclofen and Albuterol (7) Hypothyroidism Status: Chronic Assessment & Plan: Restart levothyroxine SALAZAR HILTON MD 11/06/20 2116: HPI History of Present Illness: Date seen by provider: Nov 06, 2020 Time Seen by Provider: 12:37 Home Medications Allergies Coded Allergies: Penicillins (Verified Allergy, Unknown, Hives, 10/08/19) cephalexin (Verified Allergy, Unknown, Anaphylaxis, 10/08/19) metoclopramide (Verified Allergy, Unknown, 10/08/19) tramadol (Verified Allergy, Unknown, Itching, 10/08/19) Supervisory-Addendum Brief Verification & Attestation Participated in pt care: history, MDM, physical Personally performed: exam, history, MDM Care discussed with: Medical Student Procedures: n/a Pt reports episodes of sudden falling, but these only occur after she has not slept all night and all day, and almost seem as if she is falling asleep and falling over. She has had stress test, echo and Holter monitor done but hasn't reviewed results with Dr. Forrest yet, had PFT which showed severe obstruction, she reports known COPD. She was supposed to be getting a sleep study as well. This time seemed different though because she hasn't had the jerking/shaking with these episodes before. It does not sound quite like seizure as she was responding to her , but that remains in the differential. Clinically does not appear to have meningitis or encephalitis. Possibly medication overuse (serotonin syndrome?) or even unknown medication use, she notes she had some old lasix in a basket and realized she may have put that in with her regular medications, she was urinating a lot. Will monitor on telemetry and anticipate likely d/c tomorrow with continued outpatient work-up. Her states she is near baseline but still not quite her normal self. I personally saw and examined patient and did my own history and exam and agree with documentation by the medical student, except sepsis was not suspected, no clear evidence of any infectious source for this episode. CLARE AUGUSTIN Nov 06, 2020 08:40 SALAZAR HILTON MD Nov 06, 2020 21:16
[2020-11-06 12:00] VITALS: BP 126/56
[2020-11-06] MEDS ORDERED: BACL10TA PO (14:32)
[2020-11-06] MEDS ORDERED: FEXO-46 PO (14:32)
[2020-11-06] MEDS ORDERED: POTA10TA PO (14:32)
[2020-11-06] MEDS ORDERED: BUDE10.7 INH (14:32)
[2020-11-06] MEDS ORDERED: RT-ALBUINH INH (14:32)
[2020-11-06] MEDS ORDERED: FERR-84 PO (14:32)
[2020-11-06] MEDS ORDERED: CHOL10007 PO (14:32)
[2020-11-06] MEDS ORDERED: OXC5T PO (14:32)
[2020-11-06] MEDS ORDERED: PREN-8 PO (14:32)
[2020-11-06] MEDS ORDERED: ESCI20TA39 PO (14:32)
[2020-11-06] MEDS ORDERED: OXYC5TAB PO (14:32)
[2020-11-06 16:00] VITALS: BP 107/63
[2020-11-06 20:23] VITALS: BP 164/69
[2020-11-06] MEDS ORDERED: RT-ALBUTEROL SULF 2.5 MG/3 ML PRE-MIX VIAL INH PRN (21:30)
[2020-11-06 23:00] VITALS: BP 145/70
[2020-11-07] MEDS: BACLOFEN 10 MG (LIORESAL) TAB PO SCH ×2 (00:40→09:00)
[2020-11-07 03:51] VITALS: BP 153/73
[2020-11-07] MEDS: LACTATED RINGERS 1,000 ML IV SCH (06:01)
[2020-11-07] MEDS ORDERED: LEVOTHYROXINE 50 MCG (LEVOTHROID) TAB PO SCH (07:00)
[2020-11-07 07:19] LABS: HEMATOCRIT 38 % (35-52); MEAN CORPUSCULAR HEMOGLOBIN 32 pg (25-34); MEAN CORPUSCULAR HGB CONC 32 g/dL (32-36); MEAN CORPUSCULAR VOLUME 101 fL (80-99); PLATELET COUNT 305 10^3/uL (130-400); WHITE BLOOD COUNT 5.6 10^3/uL (4.3-11.0)
[2020-11-07] MEDS: ONDANSETRON 4 MG/2 ML (SDV) Z0FRAN IV PRN (07:20)
[2020-11-07 07:36] LABS: CALCIUM 8.8 MG/DL (8.5-10.1)
[2020-11-07 07:40] LABS: CREATININE SERUM 0.6 MG/DL (0.60-1.30)
[2020-11-07 08:00] VITALS: BP 129/75
[2020-11-07] MEDS ORDERED: BACLOFEN 10 MG (LIORESAL) TAB PO SCH (09:00)
[2020-11-07] MEDS ORDERED: NON-FORMULARY MEDICATION 1 EA EA (Budesonide/Glycopyr/Formoterol (Breztri Aerosphere Inhal INH SCH (09:00)
[2020-11-07] MEDS: LORazepam INJ 2 MG/ML (ATIVAN) VIAL IV PRN (09:48)
[2020-11-07 10:24] VITALS: BP 129/75
[2020-11-07] MEDS ORDERED: LORA-404 PO ×2 (10:26→10:30)
--- NOTE | 2020-11-11 08:46 | Physician Query Clarification ---
PQ-Further Specificity Admission/Discharge Admission Date: Nov 05, 2020 at 19:30 Discharge Date: Nov 07, 2020 at 10:39 Dr. Segura, The medical record reflects the following clinical scenario: History/Risk Factors: TIM, chronic pain, HTN Clinical Findings: acting strangely, jerking movements, nausea vomiting, not answering questions appropriately, delirium, drug screen + opiates, oxycodone, Syphilis serology nonreactive, HSV I,II not detected Treatment: IVF, Ativan IVP, Zofran IVP Question: Can you further specify the underlying cause of the patient's delirium per the clinical indicators above? Please document a response in the Progress Notes or Discharge Summary. 1. serotonin neurotoxicity 2. delirium undtermined etiology 3. Other, with explanation of the clinical findings. 4. Clinically undetermined, no explanation for the clinical findings. PHYSICIAN RESPONSE Can you specify per above: Other, explanation/clinical finding Explanation/Clinical Findings I was not involved in the care of this patient Please remember a lack of response to the above will prompt a phone page by CDI/Coding staff. In responding to this query, please exercise your independent professional judgment. The purpose of this communication is to more accurately reflect the complexity of your patients condition. The fact that a question is asked does not imply that any particular answer is desired or expected. Thank you for your timely response to this clarification. Requestors name: Shannan THIS PHYSICIAN QUERY FORM IS A PERMANENT PART OF THE MEDICAL RECORD SHANNAN HAGEN Nov 11, 2020 08:46 SALAZAR ASHBY MD Nov 17, 2020 10:58 SALVATORE OSWALD MD Nov 27, 2020 11:42 BOBBY SEGURA MD Nov 29, 2020 14:55
--- NOTE | 2020-11-18 07:26 | Physician Query Clarification ---
PQ-Further Specificity Admission/Discharge Admission Date: Nov 05, 2020 at 19:30 Discharge Date: Nov 07, 2020 at 10:39 Dr. Landaverde, The medical record reflects the following clinical scenario: Dr. Landaverde, The medical record reflects the following clinical scenario: History/Risk Factors: TIM, chronic pain, HTN Clinical Findings: acting strangely, jerking movements, nausea vomiting, not answering questions appropriately, delirium, drug screen + opiates, oxycodone, Syphilis serology nonreactive, HSV I,II not detected Treatment: IVF, Ativan IVP, Zofran IVP Question: Can you further specify the underlying cause of the patient's delirium per the clinical indicators above? Please document a response in the Progress Notes or Discharge Summary. 1. serotonin neurotoxicity 2. delirium undtermined etiology 3. Other, with explanation of the clinical findings. 4. Clinically undetermined, no explanation for the clinical findings. Please remember a lack of response to the above will prompt a phone page by CDI/Coding staff. In responding to this query, please exercise your independent professional judgment. The purpose of this communication is to more accurately reflect the complexity of your patients condition. The fact that a question is asked does not imply that any particular answer is desired or expected. Thank you for your timely response to this clarification. Requestors name: Siddhartha THIS PHYSICIAN QUERY FORM IS A PERMANENT PART OF THE MEDICAL RECORD SIDDHARTHA HAGEN Nov 18, 2020 07:26
--- NOTE | 2020-11-26 08:12 | Physician Query Clarification ---
PQ-Further Specificity Admission/Discharge Admission Date: Nov 05, 2020 at 19:30 Discharge Date: Nov 07, 2020 at 10:39 Dr. Segura, The medical record reflects the following clinical scenario: Dr. Segura, The medical record reflects the following clinical scenario: History/Risk Factors: TIM, chronic pain, HTN Clinical Findings: acting strangely, jerking movements, nausea vomiting, not answering questions appropriately, delirium, drug screen + opiates, oxycodone, Syphilis serology nonreactive, HSV I,II not detected Treatment: IVF, Ativan IVP, Zofran IVP Question: Can you further specify the underlying cause of the patient's delirium per the clinical indicators above? Please document a response in the Progress Notes or Discharge Summary. 1. serotonin neurotoxicity 2. delirium undtermined etiology 3. Other, with explanation of the clinical findings. 4. Clinically undetermined, no explanation for the clinical findings. PHYSICIAN RESPONSE Can you specify per above: Other, explanation/clinical finding Explanation/Clinical Findings I was not involved in the care of this patient Please remember a lack of response to the above will prompt a phone page by CDI/Coding staff. In responding to this query, please exercise your independent professional judgment. The purpose of this communication is to more accurately reflect the complexity of your patients condition. The fact that a question is asked does not imply that any particular answer is desired or expected. Thank you for your timely response to this clarification. Requestors name: Siddhartha THIS PHYSICIAN QUERY FORM IS A PERMANENT PART OF THE MEDICAL RECORD SIDDHARTHA HAGEN Nov 26, 2020 08:12 BOBBY SEGURA MD Nov 29, 2020 14:55
--- NOTE | 2020-11-30 11:42 | Physician Query Clarification ---
PQ-Further Specificity Admission/Discharge Admission Date: Nov 05, 2020 at 19:30 Discharge Date: Nov 07, 2020 at 10:39 Dr. Hilton, The medical record reflects the following clinical scenario: The medical record reflects the following clinical scenario: History/Risk Factors: TIM, chronic pain, HTN Clinical Findings: acting strangely, jerking movements, nausea vomiting, not answering questions appropriately, delirium, drug screen + opiates, oxycodone, Syphilis serology nonreactive, HSV I,II not detected Treatment: IVF, Ativan IVP, Zofran IVP Question: Can you further specify the underlying cause of the patient's delirium per the clinical indicators above? Please document a response in the Progress Notes or Discharge Summary. 1. serotonin neurotoxicity 2. delirium undtermined etiology 3. Other, with explanation of the clinical findings. 4. Clinically undetermined, no explanation for the clinical findings. PHYSICIAN RESPONSE Can you specify per above: 2 Please remember a lack of response to the above will prompt a phone page by CDI/Coding staff. In responding to this query, please exercise your independent professional j udgment. The purpose of this communication is to more accurately reflect the complexity of your patients condition. The fact that a question is asked does not imply that any particular answer is desired or expected. Thank you for your timely response to this clarification. Requestors name: Siddhartha THIS PHYSICIAN QUERY FORM IS A PERMANENT PART OF THE MEDICAL RECORD SIDDHARTHA HAGEN Nov 30, 2020 11:42 SALAZAR HILTON MD Nov 30, 2020 15:17
== END 2020-11-07 10:39 | disposition home or self-care (01) | DRG 948 ==
LOC: EDUNIT# 17:09 → ER 17:12 → CSD 19:30 → 4TH 11-06 09:57
PROVIDERS: ADMIT Family Medicine; ATTEND Internal Medicine
PROC: 009U3ZX Drainage of Spinal Canal, Percutaneous Approach, Diagnostic (ICD-10-PCS; principal; 2020-11-05)
DX: R41.0 Disorientation, unspecified (principal); N17.9 Acute kidney failure, unspecified; S00.83XA Contusion of other part of head, initial encounter; R45.1 Restlessness and agitation; G47.00 Insomnia, unspecified; S20.221A Contusion of right back wall of thorax, initial encounter; I10 Essential (primary) hypertension; E03.9 Hypothyroidism, unspecified; G89.29 Other chronic pain; R51.9 Headache, unspecified; R11.2 Nausea with vomiting, unspecified; F17.210 Nicotine dependence, cigarettes, uncomplicated; K21.9 Gastro-esophageal reflux disease without esophagitis; G25.81 Restless legs syndrome; M19.91 Primary osteoarthritis, unspecified site; F41.9 Anxiety disorder, unspecified; J44.9 Chronic obstructive pulmonary disease, unspecified; F32.9 Major depressive disorder, single episode, unspecified; Z88.1 Allergy status to other antibiotic agents; Z88.8 Allergy status to other drugs, medicaments and biological substances; Z79.891 Long term (current) use of opiate analgesic; Z79.899 Other long term (current) drug therapy; Z91.81 History of falling; W19.XXXA Unspecified fall, initial encounter
CPT/HCPCS: 36415; 70450; 71045; 71100; 72125; 80048; 80053; 80306; 80320; 81000; 82945; 82947; 83605; 84145; 84157; 85025; 85027; 85610; 86141; 86592; 86780; 87040; 87070; 87205; 87498; 87529; 89051; 93005; 96374; 96375

== ENCOUNTER 2021-06-14 00:07 | Emergency (ER) | payer BC ==
[~2021-06-14] VITALS: Ht 165.2 cm; Wt 70.0 kg
[~2021-06-14 00:07] MED LIST changes: +BACL10TA PO; +BUDE10.7 INH; +CHOL10007 PO; +ESCI20TA39 PO; +FERR-84 PO; +FEXO-249 PO; -LEVO500T80 PO; +LEVO500T81 PO; -LISI-729 PO; +LISI5TAB20 PO; +LORA-404 PO; +OXC5T PO; +OXYC5TAB PO; +POTA10TA PO; -POTA99TA21 PO; +POTA99TA26 PO; +PREN-8 PO; +RT-ALBUINH INH
--- NOTE | 2021-06-14 00:37 | ED Syncope ---
General Chief Complaint: Dizziness/Syncope Stated Complaint: SYNCOPE,FOREHEAD BLEEDING,L ARM LAC Nursing Triage Note: Pt ambulatory into ER with complaint of Syncope x2 around midnight, and left wrist pain after falling during syncopal epsiode. Pt immediately came to. Pt denies chest pain, or past history of this. Pt is alert and oriented. Pt states that she felt dizzy/ears ringing all day today. Pt states that she got up this evening to check her BP and passed out twice in kitchen. Source of Information: Patient, Family () Exam Limitations: No Limitations History of Present Illness Date Seen by Provider: Jun 14, 2021 Time Seen by Provider: 22:19 Initial Comments Patient is a 66-year-old female who presents to the emergency department today after 2 syncopal episodes. Patient states she has not been feeling well for the last week or so. She is currently on sulfa antibiotics for urinary tract infection for the last 7 or 8 days. She states she started feeling dizzy while laying in the bed this evening, she thought her blood pressure might be too high, she got up to go downstairs and into the kitchen, heard a "crash" and found her at the bottom of 2 stairs where she had fallen. He states he woke her up she was a little groggy and when she stood up she immediately fell back to the floor. He states her loss of consciousness was brief. When she woke up she did vomit. She complains of a splitting headache, "20 out of 10". She suffered a small 1 cm laceration to her left mandaen. She denies any vision changes or speech difficulties or unilateral weakness numbness or tingling. She states she has not been drinking much fluids over the last couple of days that she has basically been in bed. She has had significant neurologic work-up at [facility] with Dr. Rod over the last several months. This work-up is for chronic headaches. She recently, 2 weeks ago, started a new headache preventative. No fevers, chills. No abdominal pain or nausea now. No chest pain or shortness of breath. She states her left wrist is sore and points to an area just proximal to the base of the left thumb where a little bit of swelling is notable. She has good range of motion to the left wrist. No numbness weakness or tingling in the hand. All other review of systems reviewed and negative except as stated Timing/Prior Episodes: Recent History Symptoms Prior to Episode: Lightheadedness, Other (dizziness) Precipitating Factors: None Loss of Consciousness: Brief (Seconds) Current Symptoms: Dizziness, Headache, Lightheadedness, Nausea, Other (left wrist pain) Allergies and Home Medications Allergies Coded Allergies: Penicillins (Verified Allergy, Unknown, Hives, 10/08/19) cephalexin (Verified Allergy, Unknown, Anaphylaxis, 10/08/19) metoclopramide (Verified Allergy, Unknown, 10/08/19) tramadol (Verified Allergy, Unknown, Itching, 10/08/19) Patient Home Medication List Home Medication List Reviewed: Yes Albuterol Sulfate (Proventil Hfa) 6.7 Gm Hfa.aer.ad, 2 PUFF INH Q6H PRN for SHORTNESS OF BREATH, (Reported) Entered as Reported by: RAMIN ARAGON on 11/06/20 1432 Baclofen (Baclofen) 10 Mg Tablet, 10 MG PO TID, (Reported) Entered as Reported by: RAMIN ARAGON on 11/06/20 1432 Budesonide/Glycopyr/Formoterol (Breztri Aerosphere Inhaler) 10.7 Gm Hfa.aer.ad, 2 PUFF INH DAILY, (Reported) Entered as Reported by: RAMIN ARAGON on 11/06/20 1432 Cholecalciferol (Vitamin D3) (Vitamin D3) 25 Mcg Capsule, 75 MCG PO DAILY, (Reported) Entered as Reported by: RAMIN ARAGON on 11/06/20 1432 Ferrous Sulfate (Iron) 325 Mg Tablet, 325 MG PO DAILY, (Reported) Entered as Reported by: RMAIN ARAGON on 11/06/20 1432 Fexofenadine HCl (Fexofenadine HCl) 180 Mg Tablet, 180 MG PO DAILY, (Reported) Entered as Reported by: RAMIN ARAGON on 11/06/20 1432 Levothyroxine Sodium (Levothyroxine Sodium) 50 Mcg Tablet, 50 MCG PO DAILY, (Reported) Entered as Reported by: DEONTE GOOD on 10/08/19 1528 Lorazepam (Ativan) 0.5 Mg Tablet, 0.5 MG PO TID PRN for ANXIETY Prescribed by: SALVATORE OSWALD on 11/07/20 1026 Lorazepam (Ativan) 0.5 Mg Tablet, 0.5 MG PO TID PRN for ANXIETY Prescribed by: SALVATORE OSWALD on 11/07/20 1030 Oxycodone HCl (Oxycodone HCl) 5 Mg Tablet, 5 MG PO DAILY, (Reported) Entered as Reported by: RAMIN ARAGON on 11/06/20 1432 Oxycodone Hcl (Oxyir Tablet) 5 Mg Tab, 2.5 MG PO DAILY PRN for PAIN-SEVERE (8- 10), (Reported) Entered as Reported by: RAMIN ARAGON on 11/06/20 1432 Potassium Chloride (K-Tab ER) 10 Meq Tablet.er, 10 MEQ PO DAILY, (Reported) Entered as Reported by: RAMIN ARAGON on 11/06/20 1432 Vit W-Ca,Fe,FA(<1 mg) ( Formula) 1 Each Tablet, 1 EACH PO DAILY, (Reported) Entered as Reported by: RAMIN ARAGON on 11/06/20 1432 Ropinirole HCl (Ropinirole HCl) 0.5 Mg Tablet, 1 MG PO HS, (Reported) Entered as Reported by: DEONTE GOOD on 10/08/19 1528 Review of Systems Constitutional: see HPI, dizziness EENTM: other (headache) Respiratory: no symptoms reported Cardiovascular: no symptoms reported Gastrointestinal: no symptoms reported Genitourinary: no symptoms reported, other (revent UTI) : No Musculoskeletal: joint pain (left wrist) Skin: other (abrasions, laceration) Psychiatric/Neurological: Other (syncope) All Other Systems Reviewed Negative Unless Noted: Yes Past Fvvniop-Tspdvx-Uiifhd Hx Patient Social History Tobacco Use?: Yes Tobacco type used: Cigarettes Smoking Status: Current Everyday Smoker Use of E-Cig and/or Vaping dev: No Substance use?: No Alcohol Use?: No Pt feels they are or have been: No Immunizations Up To Date Tetanus Booster (TDap): Less than 5yrs PED Vaccines UTD: Yes Influenza Vaccine Up-to-Date: No; Not Current First/Initial COVID19 Vaccinat: UTD Second COVID19 Vaccination Jose E: UTD Third COVID19 Vaccination Date: UTD Seasonal Allergies Seasonal Allergies: No Past Medical History Surgeries: Yes (c/s x3, TKR) Section, Hysterectomy, Joint Replacement, Orthopedic, Tonsillectomy Respiratory: No Cardiac: Yes Hypertension 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 [employer] History: Menopausal Genitourinary: No Gastrointestinal: Yes Gastroesophageal Reflux, Chronic Diarrhea Musculoskeletal: Yes (joint pain; RESTLESS LEG SYNDROME; KNEE REPLACEMENT;CHRONIC OPIATE USE) Arthritis, Chronic Back Pain Endocrine: Yes Hypothyroidsim HEENT: No Cancer: No Psychosocial: Yes Anxiety, Depression Integumentary: No Blood Disorders: Yes (CHRONIC ANEMIA) Family Medical History Cancer, CAD Over 55 Years Old Sister has breast cancer and has had two strokes Physical Exam Vital Signs Vital Signs - First Documented 06/14/21 00:12 Temp 36.6 Pulse 84 Resp 18 B/P (MAP) 135/61 (85) Pulse Ox 96 O2 Delivery Room Air Capillary Refill : Less Than 3 Seconds Height, Weight, BMI Height: '" Weight: lbs. oz. 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 Norm as Tested Cranial Nerves: Normal Hearing, Normal Speech, PERRL Coordination/Gait: Normal Gait Motor/Sensory: No Motor Deficit, No Sensory Deficit, No Pronator Drift Skin: Normal Color, Warm/Dry, Other (1cm laceration left mandaen - no active bleeding) Procedures/Interventions Wound Location: Face Other Wound Location left mandaen Wound Length (cm): 1 Wound's Depth, Shape: superficial, linear Wound Explored: clean Irrigated w/ Saline (ccs): 25 Betadine Prep?: No Anesthesia: 1% Lidocaine Volume Anesthetic (ccs): 1 Suture: Ethlion Suture Size: 5-0 Number of Sutures: 2 Layer Closure?: 1 Sterile Dressing Applied?: No Progress/Results/Core Measures Results/Orders Lab Results Laboratory Tests Test 06/14/21 00:15 06/14/21 00:40 Range/Units White Blood Count 9.8 4.3-11.0 10^3/uL Red Blood Count 4.64 3.80-5.11 10^6/uL Hemoglobin 15.0 11.5-16.0 g/dL Hematocrit 45 35-52 % Mean Corpuscular Volume 98 80-99 fL Mean Corpuscular Hemoglobin 32 25-34 pg Mean Corpuscular Hemoglobin Concent 33 32-36 g/dL Red Cell Distribution Width 11.9 10.0-14.5 % Platelet Count 342 130-400 10^3/uL Mean Platelet Volume 9.3 9.0-12.2 fL Immature Granulocyte % (Auto) 0 % Neutrophils (%) (Auto) 32 L 42-75 % Lymphocytes (%) (Auto) 58 H 12-44 % Monocytes (%) (Auto) 9 0-12 % Eosinophils (%) (Auto) 1 0-10 % Basophils (%) (Auto) 0 0-10 % Neutrophils # (Auto) 3.1 1.8-7.8 10^3/uL Lymphocytes # (Auto) 5.7 H 1.0-4.0 10^3/uL Monocytes # (Auto) 0.8 0.0-1.0 10^3/uL Eosinophils # (Auto) 0.1 0.0-0.3 10^3/uL Basophils # (Auto) 0.0 0.0-0.1 10^3/uL Immature Granulocyte # (Auto) 0.0 0.0-0.1 10^3/uL Neutrophils % (Manual) 29 % Lymphocytes % (Manual) 58 % Monocytes % (Manual) 8 % Atypical Lymphocytes 4 % Clumped Platelets SOME SEEN Blood Morphology Comment NORMAL Prothrombin Time 12.5 12.2-14.7 SEC INR Comment 0.9 0.8-1.4 Activated Partial Thromboplast Time 23 L 24-35 SEC Sodium Level 140 135-145 MMOL/L Potassium Level 4.0 3.6-5.0 MMOL/L Chloride Level 109 H 98-107 MMOL/L Carbon Dioxide Level 16 L 21-32 MMOL/L Anion Gap 15 H 5-14 MMOL/L Blood Urea Nitrogen 18 7-18 MG/DL Creatinine 0.90 0.60-1.30 MG/DL Estimat Glomerular Filtration Rate 70 BUN/Creatinine Ratio 20 Glucose Level 129 H 70-105 MG/DL Calcium Level 9.4 8.5-10.1 MG/DL Urine Color DARK YELLOW Urine Clarity CLEAR Urine pH 5.0 5-9 Urine Specific [place] >=1.030 1.016-1.022 Urine Protein 1+ H NEGATIVE Urine Glucose (UA) NEGATIVE NEGATIVE Urine Ketones NEGATIVE NEGATIVE Urine Nitrite NEGATIVE NEGATIVE Urine Bilirubin NEGATIVE NEGATIVE Urine Urobilinogen 0.2 < = 1.0 MG/DL Urine Leukocyte Esterase NEGATIVE NEGATIVE Urine RBC (Auto) NEGATIVE NEGATIVE Urine RBC NONE /HPF Urine WBC NONE /HPF Urine Squamous Epithelial Cells 2-5 /HPF Urine Crystals NONE /LPF Urine Bacteria NEGATIVE /HPF Urine Casts PRESENT /LPF Urine Hyaline Casts 5-10 H /LPF Urine Mucus SMALL H /LPF Urine Culture Indicated NO My Orders Orders - TING ELIAS MD Ed Iv/Invasive Line Start (06/14/21 00:31) Cbc With Automated Diff (06/14/21 00:31) Basic Metabolic Panel (06/14/21:31) Protime With Inr (06/14/21:31) Partial Thromboplastin Time (06/14/21 00:31) Ct Head Wo (06/14/21 00:31) Ondansetron Injection (Zofran Injectio (06/14/21 00:45) Orphenadrine Inj (Ed Only) (Norflex Inje (06/14/21 00:45) Lidocaine 1% Inj 50 Ml (Xylocaine 1% Inj (06/14/21 00:45) Ekg Tracing (06/14/21 00:31) Ua Culture If Indicated (06/14/21 00:31) Acetaminophen Tablet (Tylenol Tablet) (06/14/21 00:45) Wrist, Left, 3 Views Or More (06/14/21 00:37) Lidocaine 1% Inj 20 Ml (Xylocaine 1% Inj (06/14/21 00:42) Manual Differential (06/14/21 00:15) Ns Iv 1000 Ml (Sodium Chloride 0.9%) (06/14/21 01:15) Oxycodone/Apap 7.5/325mg Tab (Percocet (06/14/21 02:00) Medications Given in ED Current Medications Medications Dose Ordered Sig/Maria G Route Start Time Stop Time Status Last Admin Dose Admin Acetaminophen 1,000 mg ONCE ONCE PO 06/14/21 00:45 06/14/21 00:46 DC 06/14/21 00:48 1,000 MG Lidocaine HCl 20 ml STK-MED ONCE .ROUTE 06/14/21 00:42 06/14/21 00:46 DC 06/14/21 01:46 5 ML Ondansetron HCl 4 mg ONCE ONCE IVP 06/14/21 00:45 06/14/21 00:46 DC 06/14/21 00:47 4 MG Orphenadrine Citrate 60 mg ONCE ONCE IV 06/14/21 00:45 06/14/21 00:46 DC 06/14/21 00:47 60 MG Oxycodone/ Acetaminophen 1 each ONCE ONCE PO 06/14/21 02:00 06/14/21 02:01 DC 06/14/21 02:09 1 EACH Vital Signs/I&O 06/14/21 00:12 Temp 36.6 Pulse 84 Resp 18 B/P (MAP) 135/61 (85) Pulse Ox 96 O2 Delivery Room Air Blood Pressure Mean: 85 Progress Progress Note #1: Time: 01:46 Progress Note Patient reassessed, she still has a headache and her left wrist is hurting. She would like to try an oxycodone 7.5 which she takes at home for headaches. I think this is reasonable. Head CT report is pending. Left wrist x-ray is reviewed and I do not see any evidence of fracture. Labs are reviewed and are all within normal limits. Her urine is quite concentrated but is not infected. I advised her to follow-up with her primary care physician. I suspect since she is having nausea with her antibiotics over the last week that this may have contributed to her not drinking adequately while on sulfa. Am giving her a liter of normal saline. She has a neurologist she can follow-up with as well as her primary care physician. No other clinical or objective findings to warrant further studies from the emergency department. All questions are sought and answered. Progress Note #2: Time: 02:49 Progress Note Patient reassessed post fluids. She feels much better. Headache is completely gone. We reviewed her labs and discussed dehydration. She states she has not really been eating very well for the last 2 to 3 days. She states that in addition to the antibiotics may have contributed to dehydration. I advised her to follow-up with her primary care physician that she sees at [facility] [place]. Also with Dr. Rod, her neurologist at [place]. Return precautions discussed. She verbalized understanding, she is comfortable with plan of care. All questions are sought and answered. Initial ECG Impression Date: Jun 14, 2021 Initial ECG Impression Time: 00:16 Initial ECG Rate: 78 Initial ECG Rhythm: Normal Sinus Initial ECG Intervals: Normal Initial ECG Impression: Normal, Nonspecific Changes Diagnostic Imaging Diagonstic Imaging: Xray Comments Left wrist - no acute fracture identified. (reviewed by me) CT head without contrast - per [facility], no intracranial hemorrhage or other acute abnormality Departure Impression Primary Impression: Syncope Qualified Codes: R55 - Syncope and collapse Additional Impressions: Scalp laceration Qualified Codes: S01.01XA - Laceration without foreign body of scalp, initial encounter Contusion of left wrist, initial encounter Minor closed head injury Disposition: HOME, SELF-CARE Condition: Improved Departure-Patient Inst. Decision time for Depature: 01:55 [address]errals: [facility] ([place]P/Family) Primary Care Physician Patient Instructions: Syncope (Fainting) (DC), Laceration Repair With Stitches ED Add. Discharge Instructions: Increase your water intake over the next 24 to 48 hours. Your urine test today is negative. You can stop taking your antibiotics. You will need to have the stitches out in 5 or 6 days. Monitor this area for signs of infection. You can place a little triple antibiotic ointment over the wound for the next couple of days twice a day. You can wash it gently with warm soapy water. Please follow-up with your neurologist regarding your passing out spells. If you develop any new or concerning symptoms, worsening headache, vomiting or any other emergent, concerning symptoms please come back to the emergency department for reevaluation. TING ELIAS MD Jun 14, 2021 00:37
[2021-06-14] MEDS ORDERED: LIDOCAINE 1% INJ 20 ML VIAL ONE (00:42)
[2021-06-14 00:44] LABS: BASOPHILS % (AUTO) 0 % (0-10); EOSINOPHILS # (AUTO) 0.1 10^3/uL (0.0-0.3); EOSINOPHILS % (AUTO) 1 % (0-10); HEMATOCRIT 45 % (35-52); LYMPHOCYTES # (AUTO) 5.7 10^3/uL (1.0-4.0); LYMPHOCYTES % (AUTO) 58 % (12-44); MEAN CORPUSCULAR HEMOGLOBIN 32 pg (25-34); MEAN CORPUSCULAR HGB CONC 33 g/dL (32-36); MEAN CORPUSCULAR VOLUME 98 fL (80-99); MEAN PLATELET VOLUME 9.3 fL (9.0-12.2); MONOCYTES # (AUTO) 0.8 10^3/uL (0.0-1.0); MONOCYTES % (AUTO) 9 % (0-12); NEUTROPHILS # (AUTO) 3.1 10^3/uL (1.8-7.8); NEUTROPHILS % (AUTO) 32 % (42-75); PLATELET COUNT 342 10^3/uL (130-400); WHITE BLOOD COUNT 9.8 10^3/uL (4.3-11.0)
[2021-06-14] MEDS ORDERED: ACETAMINOPHEN 500 MG TAB (TYLENOL) PO ONE (00:45)
[2021-06-14] MEDS ORDERED: ORPHENADRINE 60 MG/2 ML (NORFLEX) AMP (ED ONLY) IV ONE (00:45)
[2021-06-14] MEDS ORDERED: LIDOCAINE 1% INJ 50 ML (XYLOCAINE) VIAL IJ ONE (00:45)
[2021-06-14] MEDS ORDERED: ONDANSETRON 4 MG/2 ML (SDV) Z0FRAN IVP ONE (00:45)
[2021-06-14 00:46] LABS: CALCIUM 9.4 MG/DL (8.5-10.1)
[2021-06-14 00:48] LABS: BILIRUBIN,URINE NEGATIVE (NEGATIVE); CLARITY,URINE CLEAR; COLOR,URINE DARK YELLOW; GLUCOSE, URINE (UA) NEGATIVE (NEGATIVE); KETONES,URINE NEGATIVE (NEGATIVE); LEUKOCYTE ESTERASE ,URINE NEGATIVE (NEGATIVE); NITRITE,URINE NEGATIVE (NEGATIVE); PROTEIN,URINE 1+ (NEGATIVE)
[2021-06-14 00:49] LABS: INR 0.9 (0.8-1.4); PROTHROMBIN TIME PATIENT 12.5 SEC (12.2-14.7)
[2021-06-14 00:50] LABS: CREATININE SERUM 0.9 MG/DL (0.60-1.30)
[2021-06-14 01:10] LABS: NEUTROPHILS % (MANUAL) 29 %
[2021-06-14 01:10] LABS: BACTERIA,URINE NEGATIVE /HPF
[2021-06-14 01:11] LABS: ATYPICAL LYMPHOCYTES 4 %; LYMPHOCYTES % (MANUAL) 58 %; MONOCYTES % (MANUAL) 8 %; PLATELET CLUMPS SOME SEEN; RBC MORPH NORMAL
[2021-06-14] MEDS ORDERED: NS IV 1000 ML 1,000 ML IV SCH (01:15)
[2021-06-14] MEDS ORDERED: oxyCODONE/APAP 7.5-325 MG (PERCOCET 7.5) TABLET PO ONE (02:00)
[2021-06-14 03:15] VITALS: BP 158/76
--- NOTE | 2021-06-14 05:44 | Diagnostic Imaging Report ---
INDICATION: syncope, fall left wrist pain COMPARISON: None. FINDINGS: 3 views of the left wrist demonstrate no acute fracture or dislocation. There are no focal osseous lesions. No avascular necrosis is seen. The visualized soft tissue structures are unremarkable. The pronator fat pad is not displaced. There are no radio opaque foreign bodies. Advanced osteoarthritic changes are noted of the interphalangeal joint space of the thumb. IMPRESSION: 1. No acute fracture or dislocation in the left wrist. Dictated by: Dictated on workstation # [id number]
--- NOTE | 2021-06-14 06:24 | Diagnostic Imaging Report ---
EXAMINATION: CT head without contrast. TECHNIQUE: Multiple contiguous axial images were obtained through the brain without the use of intravenous contrast. All CT scans use one or more of the following dose optimizing techniques: automated exposure control, MA and/or KvP adjustment based on patient size and exam type or iterative reconstruction. HISTORY: Syncopal episode. Dizziness. Forehead abrasion. COMPARISON: 11/06/2020. FINDINGS: No large acute territorial ischemia, mass, or hemorrhage. No midline shift or mass effect. The ventricles, cortical sulci, and basilar cisterns are patent and unremarkable. The orbits are normal. Paranasal sinuses are normal. Mastoid air cells are clear. No soft tissue abnormality is seen. No osseus lesions or fractures are seen. IMPRESSION: 1. No large acute territorial ischemia, mass, or hemorrhage. Dictated by: Dictated on workstation # [id number]
== END 2021-06-14 03:14 | disposition home or self-care (01) ==
LOC: EDUNIT# 00:07 → ER 00:10
DX: S09.90XA Unspecified injury of head, initial encounter (principal); S01.01XA Laceration without foreign body of scalp, initial encounter; S60.212A Contusion of left wrist, initial encounter; R55 Syncope and collapse; M79.89 Other specified soft tissue disorders; F17.210 Nicotine dependence, cigarettes, uncomplicated; Z79.2 Long term (current) use of antibiotics; W10.9XXA Fall (on) (from) unspecified stairs and steps, initial encounter; Y92.009 Unspecified place in unspecified non-institutional (private) residence as the place of occurrence of the external cause
CPT/HCPCS: 36415; 70450; 73110; 80048; 81000; 85007; 85027; 85610; 85730; 93005

== ENCOUNTER 2021-11-15 10:55 | Outpatient (CLI) | payer BC ==
[~2021-11-15] VITALS: Ht 157.5 cm; Wt 45.4 kg
[~2021-11-15 10:55] MED LIST changes: -FEXO-249 PO; +LEVO-55 PO; -LEVO500T81 PO; +NF-ALLE180 PO
[2021-11-15] MEDS ORDERED: ESCI-2 PO (12:50)
[2021-11-15] MEDS ORDERED: ZINC220T3 PO (12:50)
== END 2021-11-15 12:58 ==
LOC: PREOP 10:55
PROVIDERS: ATTEND Surgery
DX: Z01.818 Encounter for other preprocedural examination (principal); R63.4 Abnormal weight loss; R97.0 Elevated carcinoembryonic antigen [CEA]

== ENCOUNTER 2021-11-18 12:20 | Day surgery (SDC) | payer BC ==
[~2021-11-18] VITALS: Ht 154.9 cm; Wt 45.4 kg
[~2021-11-18 12:20] MED LIST changes: +ESCI-2 PO; +ZINC220T3 PO
[2021-11-18] MEDS ORDERED: LACTATED RINGERS 1,000 ML IV STA (12:23)
[2021-11-18] MEDS ORDERED: LACTATED RINGERS 1,000 ML IV ONE (12:26)
[2021-11-18] MEDS ORDERED: HURRICAINE EXT TUBE (BENZOCAINE) XX PRN (12:30)
[2021-11-18 12:47] VITALS: BP 122/95
[2021-11-18] MEDS ORDERED: PROPOFOL INJECTION 50 ML IV ONE (12:56)
--- NOTE | 2021-11-18 13:19 | Progress Note-Pre Operative ---
Pre-Operative Progress Note Date of Available H&P: Nov 15, 2021 Date H&P Reviewed: Nov 18, 2021 Time H&P Reviewed: 13:19 History & Physical: H&P Reviewed, Patient Examed, No changes noted Pre-Operative Diagnosis: weight loss, elevated cea JOSTIN LEWIS DO Nov 18, 2021 13:19
[2021-11-18 13:55] VITALS: BP 134/67
[2021-11-18 14:00] VITALS: BP 130/63
[2021-11-18] MEDS ORDERED: PANT40TA2 PO (14:16)
--- NOTE | 2021-11-18 14:17 | Discharge Inst-Simple/Standard ---
Discharge Inst-Standard Patient Instructions/Follow Up Plan of Care/Instructions/FU: 2 weeks Gabriella Activity as Tolerated: Yes Discharge Diet: Regular Diet JOSTIN LEWIS DO Nov 18, 2021 14:17
[2021-11-18 14:20] VITALS: BP 101/66
[2021-11-18 14:30] VITALS: BP 101/66
--- NOTE | 2021-11-18 14:36 | Anesthesia-General Post-Op ---
MAC Patient Condition Mental Status/LOC: Same as Preop Cardiovascular: Satisfactory Nausea/Vomiting: Absent Respiratory: Satisfactory Pain: Controlled Complications: Absent Post Op Complications Complications None Follow Up Care/Instructions Patient Instructions None needed. Anesthesiology Discharge Order Discharge Order Patient is doing well, no complaints, stable vital signs, no apparent adverse anesthesia problems. No complications reported per nursing. MELISSA GOMEZ CRNA Nov 18, 2021 14:36
--- NOTE | 2021-11-18 23:06 | OPERATIVE REPORT ---
DATE OF SERVICE: 11/18/2021 PREOPERATIVE DIAGNOSES: Weight loss and elevated CEA. POSTOPERATIVE DIAGNOSES: Gastritis, small hiatal hernia, normal colon. PROCEDURE: EGD with biopsies, colonoscopy. SURGEON: Jostin Quiroz DO ANESTHESIA: Per QUILLER MACHINE FIXER. ESTIMATED BLOOD LOSS: None. COMPLICATIONS: None. INDICATIONS: The patient is a 64-year-old female, who has had abnormal weight loss. She has also had a CEA drawn, which she reports was elevated. The patient has history of large colon polyp as well. She understands risks and benefits of procedure and wishes to proceed. Consent was signed in the chart. DESCRIPTION OF PROCEDURE: The patient was taken to the endoscopy suite, placed in left lateral recumbent position. Timeout was performed. Scope was inserted in mouth, down the esophagus, stomach and into the duodenum without difficulty. There were no polyps, masses or ulcerations within the duodenum. Scope was slowly retracted back to stomach where it was further insufflated. Gastritis appearance, maybe some small erosions present. Biopsies of the antrum were obtained. Scope was then retroflexed noting a small hiatal hernia. Scope was then returned to its normal position, slowly withdrawn to distal esophagus. No polyps, masses or ulcerations. Biopsy of the GE junction was obtained. Scope was slowly retracted back until completely removed. The patient tolerated the procedure well without any complications. Colonoscopy was then performed. Digital rectal exam was performed. No palpable polyps, masses or ulcerations. Scope was inserted in the rectum, advanced all the way to cecum with minimal difficulty. Prep was adequate. Scope was slowly retracted back. No polyps, masses or ulcerations within the cecum, ascending, transverse, descending and sigmoid colon. Once in the rectum, scope was retroflexed noting no other pathology. The colon was slightly redundant, particularly in the left colon. The patient tolerated the procedure well without any complications. She was taken to recovery room in stable condition. RECOMMENDATIONS: The patient will be started on Protonix 40 mg daily. We would recommend getting a CT scan of the chest, abdomen and pelvis due to the abnormal weight loss for further evaluation. She will follow up in the office in 2 weeks to discuss and arrange those further exams. Job ID: [id number] DocumentID: [id number] Dictated Date: 11/18/2021 14:42:28 Winding Inspector Date: 11/18/2021 21:17:37 Dictated By: JOSTIN QUIROZ DO
== END 2021-11-18 14:30 | disposition home or self-care (01) ==
LOC: ENDO 12:20
PROVIDERS: ATTEND Surgery
DX: K29.70 Gastritis, unspecified, without bleeding (principal); K44.9 Diaphragmatic hernia without obstruction or gangrene; K21.00 Gastro-esophageal reflux disease with esophagitis, without bleeding; R97.0 Elevated carcinoembryonic antigen [CEA]; Q43.8 Other specified congenital malformations of intestine; F17.210 Nicotine dependence, cigarettes, uncomplicated; Z86.010 Personal history of colon polyps
CPT/HCPCS: 88305

== ENCOUNTER → 2021-11-19 | Outpatient (CLI) | payer BC ==
--- NOTE | 2021-11-19 10:17 | Diagnostic Imaging Report ---
INDICATION: Routine screening COMPARISON is made with prior mammograms 10/12/2020 and 08/26/2019. 2-D and 3-D bilateral screening mammography was performed with CAD. Scattered fibroglandular densities are identified bilaterally. There are benign parenchymal and vascular calcifications throughout both breasts. No mass or malignant-appearing microcalcifications are seen. IMPRESSION: BI-RADS Category 2 No mammographic features suspicious for malignancy are identified. ACR BI-RADS Category 2: Benign findings. Result letter will be mailed to the patient. Note: At least 10% of breast cancer is not imaged by mammography. Dictated by: Dictated on workstation # [id number]
== END ==
LOC: RAD 09:00
PROVIDERS: ATTEND Nurse Practitioner Family
DX: Z12.31 Encounter for screening mammogram for malignant neoplasm of breast (principal); Z09 Encounter for follow-up examination after completed treatment for conditions other than malignant neoplasm; Z76.0 Encounter for issue of repeat prescription; Z48.02 Encounter for removal of sutures; N30.01 Acute cystitis with hematuria; F43.0 Acute stress reaction; J44.9 Chronic obstructive pulmonary disease, unspecified; E86.0 Dehydration; S01.01XD Laceration without foreign body of scalp, subsequent encounter; M54.41 Lumbago with sciatica, right side; G43.909 Migraine, unspecified, not intractable, without status migrainosus; R63.4 Abnormal weight loss
CPT/HCPCS: 77063; 77067

== ENCOUNTER → 2021-11-19 | Outpatient (CLI) | payer BC ==
[~2021-11-19] MED LIST changes: +CATHETER FLUSH 10 ML SYR IV PRN; +HOLD METFORMIN - RECEIVED CONTRAST 20 ML VIAL IV SCH; +IOHEXOL 350 MG/ML 100 ML (OMNIPAQUE 350) VIAL IV ONE; +NS 100 ML (IVPB) BAG IV ONE
[2021-11-19 15:16] LABS: CREATININE SERUM 1.11 MG/DL (0.60-1.30)
--- NOTE | 2021-11-19 16:30 | Diagnostic Imaging Report ---
INDICATION: Unexplained weight loss. TECHNIQUE: Multiple contiguous axial images were obtained through the chest, abdomen, and pelvis after the administration of intravenous contrast. Auto Exposure Controls were utilized during the CT exam to meet ALARA standards for radiation dose reduction. COMPARISON: CT chest is compared to 08/11/2020. CT abdomen and pelvis is compared to 08/29/2014. CT CHEST FINDINGS: There are no enlarged mediastinal or hilar nodes. There are no enlarged axillary nodes or chest wall lesions. There is no pleural or pericardial fluid. Lung parenchymal windows demonstrate no pulmonary infiltrates or nodules. There is a subacute left 6th rib fracture. CT ABDOMEN/PELVIS FINDINGS: The liver and gallbladder are normal in appearance. The spleen, adrenals and pancreas appear normal. Kidneys, bilaterally, show no hydronephrosis. There are a couple small cysts in the right kidney inferiorly. There is no retroperitoneal mass or adenopathy. There is no ascites or abnormal fluid collection. There is no pelvic mass or lymphadenopathy. The patient has had previous hysterectomy. Visualized bowel loops show no overt obstruction. IMPRESSION: 1. CT chest demonstrates no overt acute abnormality. There is no pulmonary mass or adenopathy in the mediastinum or deb. There is no pleural fluid. There is a subacute left 6th rib fracture. 2. CT abdomen and pelvis demonstrates no evidence of overt mass lesion or bowel obstruction or abnormal fluid collection. There are incidental small cysts in the right kidney. Dictated by: Dictated on workstation # [id number]
== END ==
LOC: RAD 14:35
PROVIDERS: ATTEND Surgery
DX: S22.32XA Fracture of one rib, left side, initial encounter for closed fracture (principal); N28.1 Cyst of kidney, acquired; R63.4 Abnormal weight loss
CPT/HCPCS: 36415; 71260; 74177; 82565; 84520

== ENCOUNTER → 2021-11-19 | Outpatient (CLI) | payer BC ==
[~2021-11-19] MED LIST changes: -CATHETER FLUSH 10 ML SYR IV PRN; -HOLD METFORMIN - RECEIVED CONTRAST 20 ML VIAL IV SCH; -IOHEXOL 350 MG/ML 100 ML (OMNIPAQUE 350) VIAL IV ONE; -NS 100 ML (IVPB) BAG IV ONE
--- NOTE | 2021-11-19 10:34 | Diagnostic Imaging Report ---
PROCEDURE: MRI lumbar spine, 11/19/2021. TECHNIQUE: Multiplanar, multisequence MRI of the lumbar spine was performed without contrast. INDICATION: Right leg numbness and low back pain. FINDINGS: There is normal height and alignment other than grade 1 retrolisthesis at L2-L3. Vertebral body heights maintained. Tip of the conus unremarkable in appearance and location. L1-L2: There is bilateral facet and ligamentum flavum hypertrophy. There is no central stenosis. The neural foramina appear patent. L2-L3: There is intervertebral disc space narrowing and disc desiccation. There is bilateral facet and ligamentum flavum hypertrophy. There is a broad-based somewhat right paracentral bulging disc. Secondary mild central stenosis is noted. There is moderate to severe bilateral neural foraminal stenosis. L3-L4: There is intervertebral disc space narrowing and disc desiccation. There is bilateral facet and ligamentum flavum hypertrophy. There is a mild broad-based bulging disc. There is no central stenosis. There is moderate bilateral neural foraminal narrowing. L4-L5: There is intervertebral disc space narrowing and disc desiccation. There is bilateral facet and ligamentum flavum hypertrophy. There is a broad-based bulging disc which flattens the ventral thecal sac. There is mild central and left lateral recess narrowing. There is moderate bilateral neural foraminal stenosis. L5-S1: There is a broad-based bulging disc with bilateral facet and ligamentum flavum hypertrophy. There is no central stenosis. The neural foramina appear patent. There is no acute intra-abdominal process. IMPRESSION: 1. Multilevel diffuse degenerative findings as detailed above with bulging disc material seen from L2-L3 through L5-S1 without significant central stenosis. Multilevel neural foraminal narrowing is seen worst at the L2-L3. Dictated by: Dictated on workstation # [id number]
== END ==
LOC: RAD 11:20
PROVIDERS: ATTEND Family Medicine
DX: Z76.0 Encounter for issue of repeat prescription (principal); Z48.02 Encounter for removal of sutures; M51.27 Other intervertebral disc displacement, lumbosacral region; M47.817 Spondylosis without myelopathy or radiculopathy, lumbosacral region; M48.061 Spinal stenosis, lumbar region without neurogenic claudication; S01.01XD Laceration without foreign body of scalp, subsequent encounter; E86.0 Dehydration; J44.9 Chronic obstructive pulmonary disease, unspecified; F43.0 Acute stress reaction; N30.01 Acute cystitis with hematuria; M62.81 Muscle weakness (generalized); R63.4 Abnormal weight loss; R20.1 Hypoesthesia of skin
CPT/HCPCS: 72148

== ENCOUNTER 2021-12-11 07:22 | Emergency (ER) | payer BC ==
[~2021-12-11] VITALS: Ht 155 cm; Wt 45.4 kg
[2021-12-11] MEDS ORDERED: oxyCODONE/APAP 7.5-325 MG (PERCOCET 7.5) TABLET PO ONE (08:15)
--- NOTE | 2021-12-11 08:23 | Diagnostic Imaging Report ---
PROCEDURE: CT head without contrast. TECHNIQUE: Multiple contiguous axial images were obtained through the brain without the use of intravenous contrast. Auto Exposure Controls were utilized during the CT exam to meet ALARA standards for radiation dose reduction. INDICATION: Fall and head injury. Correlation is made with prior head CT from 06/14/2021. Ventricles and sulci are within normal limits. No sulcal effacement or midline shift is identified. No acute intra-axial or extra-axial hemorrhage is detected. Cisterns are patent. Visualized paranasal sinuses are clear. There appears to be some mild soft tissue swelling in the left posterior parietal scalp. IMPRESSION: Left posterior parietal scalp swelling. No acute intracranial process is detected. Dictated by: Dictated on workstation # [id number]
--- NOTE | 2021-12-11 08:27 | Diagnostic Imaging Report ---
Indication: Fall. Time of Exam: 8:25 AM AP view pelvis and 2 views of right hip were obtained. Femoral acetabular alignment is normal bilaterally. Both femoral heads and necks appear to be intact. The rami are intact. No fractures are seen. Impression: No acute bony abnormality is detected. Dictated by: Dictated on workstation # [id number]
--- NOTE | 2021-12-11 08:33 | ED Fall/Injury ---
General Chief Complaint: Trauma-Non Activation Stated Complaint: FALL/HEAD LAC/RIGHT HIP PAIN Nursing Triage Note: PT STATES SHE WAS SITTING ON THE TOP STEP OF HER DECK AND FELL OFF BACKWARDS, CC OF RT POSTERIOR HEAD ABRASION AND RT HIP PAIN. PT AMBULATED TO . STATES SHE SOMETIMES FALLS ASLEEP BECAUSE SHE DOES NOT SLEEP WELL, MAY HAVE FALLEN ASLEEP AND FELL. Source: patient, family Exam Limitations: no limitations History of Present Illness Date Seen by Provider: Dec 11, 2021 Time Seen by Provider: 07:59 Initial Comments Here with report of minor head injury and right hip pain after fall from the front porch. Apparently she does not sleep well at night and got up this morning and went and stood on the porch. Reports only has a top rail per the and she apparently fell through and landed on her right hip and hit her head. Patient states that she may have fallen asleep. responded afterwards. He reports that he does not believe she lost consciousness and patient agrees. She did have some bleeding from the posterior scalp on the right and does complain of a bump above the left ear posterior on the left. Also complains of high right hip pain. She was able to walk and. Denies other injuries. Tetanus is up-to-date. She has not had anything for the pain this morning. Injury occurred approximately an hour ago. She does complain of right and left-sided headache that seems to be moving forward now. Occurred: this morning Severity: mild Injuries/Pain Location: head, pelvis Context: other (Patient reports she thinks she may have fallen asleep which caused her to fall. She states she sometimes will fall asleep while standing up.) Loss of Consciousness: no loss of consciousness Modifying Factors: Worse With Movement; Improves With Rest Associated Symptoms (Fall): No Confusion, No Dizziness; Headache; No Muscle Spasms, No Nausea/Vomiting, No Neck Pain, No Shortness of Air, No Trouble Walking, No Vision Changes Allergies and Home Medications Allergies Coded Allergies: Penicillins (Verified Allergy, Unknown, Hives, 10/08/19) cephalexin (Verified Allergy, Unknown, Anaphylaxis, 10/08/19) metoclopramide (Verified Allergy, Unknown, 10/08/19) tramadol (Verified Allergy, Unknown, Itching, 10/08/19) Patient Home Medication List Home Medication List Reviewed: Yes Baclofen (Baclofen) 10 Mg Tablet, 10 MG PO TID, (Reported) Entered as Reported by: RAMIN ARAGON on 11/06/20 143 Cholecalciferol (Vitamin D3) (Vitamin D3) 25 Mcg Capsule, 75 MCG PO DAILY, (Reported) Entered as Reported by: RAMIN ARAGON on 11/06/20 1432 Escitalopram Oxalate (Escitalopram Oxalate) 10 Mg Tablet, 10 MG PO DAILY, (Repo rted) Entered as Reported by: SOL KENT on 11/15/21 1250 Ferrous Sulfate (Iron) 325 Mg Tablet, 325 MG PO DAILY, (Reported) Entered as Reported by: RAMIN ARAGON on 11/06/20 143 Levothyroxine Sodium (Levothyroxine Sodium) 50 Mcg Tablet, 50 MCG PO DAILY, (Reported) Entered as Reported by: DEONTE GOOD on 10/08/19 1528 Oxycodone HCl (Oxycodone HCl) 5 Mg Tablet, 5 MG PO DAILY, (Reported) Entered as Reported by: RAMIN ARAGON on 11/06/20 143 Pantoprazole Sodium (Protonix) 40 Mg Tablet.dr, 40 MG PO DAILY Prescribed by: JOSTIN LEWIS on 11/18/21 1416 Potassium Chloride (K-Tab ER) 10 Meq Tablet.er, 10 MEQ PO DAILY, (Reported) Entered as Reported by: RAMIN ARAGON on 11/06/20 1432 Vit W-Ca,Fe,FA(<1 mg) ( Formula) 1 Each Tablet, 1 EACH PO DAILY, (Reported) Entered as Reported by: RAMIN ARAGON on 11/06/20 1432 Ropinirole HCl (Ropinirole HCl) 0.5 Mg Tablet, 1 MG PO HS, (Reported) Entered as Reported by: DEONTE GOOD on 10/08/19 1528 Zinc Sulfate (Zinc) 50 Mg Zinc (220 Mg) Tablet, 50 MG PO DAILY, (Reported) Entered as Reported by: SOL KENT on 11/15/21 1250 Review of Systems Review of Systems Constitutional: see HPI; No chills, No fever Eyes: Denies Blurred Vision, Denies Vision Changes Ears, Nose, Mouth, Throat: no symptoms reported Respiratory: No cough, No short of breath Cardiovascular: no symptoms reported Gastrointestinal: No nausea, No vomiting Musculoskeletal: No back pain; joint pain, muscle pain, muscle stiffness Skin: No change in color; lesions (Small puncture/abrasion right posterior scalp) Psychiatric/Neurological: Denies Headache, Denies Weakness All Other Systems Reviewed Negative Unless Noted: Yes Past Sfxfjfy-Yajwhh-Aalecs Hx Patient Social History Tobacco Use?: Yes Tobacco type used: Cigarettes Smokeless Tobacco Frequency: Current Everyday User Substance use?: No Alcohol Use?: No Immunizations Up To Date Tetanus Booster (TDap): Less than 5yrs PED Vaccines UTD: Yes First/Initial COVID19 Vaccinat: 2020 Second COVID19 Vaccination Jose E: 2020 Third COVID19 Vaccination Date: NO COVID19 Vaccine Log Rafter: Infomous Seasonal Allergies Seasonal Allergies: No Past Medical History Surgery/Hospitalization HX: COPD, ASTHMA, 3 C SECTIONS, HYSTERECTOMY, RT KNEE REPLACED Surgeries: Yes (c/s x3, TKR) Section, Hysterectomy, Joint Replacement, Orthopedic, Tonsillectomy Respiratory: No Cardiac: Yes Hypertension 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 [employer] History: Menopausal Genitourinary: No Gastrointestinal: Yes Gastroesophageal Reflux, Chronic Diarrhea Musculoskeletal: Yes (joint pain; RESTLESS LEG SYNDROME; KNEE REPLACEMENT;CHRONIC OPIATE USE) Arthritis, Chronic Back Pain Endocrine: Yes Hypothyroidsim HEENT: No Cancer: No Psychosocial: Yes Anxiety, Depression Integumentary: No Blood Disorders: Yes (CHRONIC ANEMIA) Family Medical History Reviewed Nursing Family Hx Cancer, CAD Over 55 Years Old Sister has breast cancer and has had two strokes Physical Exam Vital Signs Vital Signs - First Documented 12/11/21 07:45 Temp 36.4 Pulse 74 Resp 20 B/P (MAP) 182/92 (122) Pulse Ox 97 O2 Delivery Room Air Capillary Refill : Less Than 3 Seconds Height, Weight, BMI Height: '" Weight: lbs. oz. kg; 18.00 BMI Method: General Appearance: WD/WN, no apparent distress HEENT: PERRL/EOMI, pharynx normal Neck: full range of motion, supple Cardiovascular: regular rate, rhythm, no murmur Respiratory: lungs clear, normal breath sounds Gastrointestinal: non tender, soft Extremities: pelvis stable, other (Tender high right pelvis in the posterior lateral area with no bruising or abrasion noted. No obvious deformity.) Neurologic/Psychiatric: alert, normal mood/affect Skin: warm/dry, other (Small nonbleeding puncture to posterior scalp on the right with very small amount of surrounding abrasion in the range of 2 to 3 mm around 2 mm puncture. No ecchymosis noted) A[place]worth Coma Score Best Eye Response: (4) Open Spontaneously Best Verbal Response: (5) Oriented Best Motor Response: (6) Obeys Commands Procedures/Interventions Suture Size: 5-0 Progress/Results/Core Measures Results/Orders My Orders Orders - MERCEDES MONET MD Ct Head Wo (12/11/21 07:59) Oxycodone/Apap 7.5/325mg Tab (Percocet (12/11/21 08:15) Pelvis With Right Hip 2-3views (12/11/21 08:10) Ondansetron Oral Dissolve Tab (Zofran (12/11/21 08:46) Medications Given in ED Current Medications Medications Dose Ordered Sig/Maria G Route Start Time Stop Time Status Last Admin Dose Admin Oxycodone/ Acetaminophen 1 each ONCE ONCE PO 12/11/21 08:15 12/11/21 08:16 DC 12/11/21 08:57 1 EACH Vital Signs/I&O 12/11/21 12/11/21 07:45 08:57 Temp 36.4 36.4 Pulse 74 Resp 20 B/P (MAP) 182/92 (122) Pulse Ox 97 O2 Delivery Room Air Blood Pressure Mean: 122 Progress Progress Note : Progress Note Seen and evaluated. Patient has up-to-date tetanus from 1 year ago per her. We will go ahead and get CT of the head. She has no neck pain and no neck restrictions so no CT of the neck. We will get x-ray of the right hip and pelvis. Patient currently takes oxycodone. She has not had that this morning. We will go ahead and give oxycodone/APAP 7.5/325 1 tab p.o. now. Monitor patient. 0835: CT head and x-ray right hip and pelvis complete. No obvious intracranial hemorrhage noted on CT on my evaluation pending report. No obvious fracture noted on x-ray on my evaluation pending report. Monitor patient. 0905: Radiology agrees no acute fractures and no intracranial hemorrhage. See full report for details. Patient did have some nausea and so ondansetron 4 mg p.o. given. She has oxycodone and ondansetron at home. No indication for further evaluation or admission. Discharged home with return precautions. Patient verbalized understanding instructions and agreement with plan. Diagnostic Imaging Diagonstic Imaging: CT Plain Films/CT/US/NM/MRI: head Comments [facility], [place] NAME: LISANDRA LEONARD [facility] REC#: [id number] PT STATUS: REG ER : 1955 PHYSICIAN: MERCEDES MONET MD ADMIT DATE: 12/11/21/ER Draft Date of Exam:12/11/21 CT HEAD WO PROCEDURE: CT head without contrast. TECHNIQUE: Multiple contiguous axial images were obtained through the brain without the use of intravenous contrast. Auto Exposure Controls were utilized during the CT exam to meet ALARA standards for radiation dose reduction. INDICATION: Fall and head injury. Correlation is made with prior head CT from 06/14/2021. Ventricles and sulci are within normal limits. No sulcal effacement or midline shift is identified. No acute intra-axial or extra-axial hemorrhage is detected. Cisterns are patent. Visualized paranasal sinuses are clear. There appears to be some mild soft tissue swelling in the left posterior parietal scalp. IMPRESSION: Left posterior parietal scalp swelling. No acute intracranial process is detected. Dictated on workstation # [id number] Dict: 12/11/21817 Trans: 12/11/21821 [facility] [id number] Interpreted by: FAMILIA CHANEL MD Electronically signed by: Diagonstic Imaging: Xray Plain Films/CT/US/NM/MRI: pelvis, hip Comments [facility] [place] NAME: LISANDRA LEONARD [facility] REC#: [id number] PT STATUS: REG ER : 1955 PHYSICIAN: MERCEDES MONET MD ADMIT DATE: 12/11/21/ER Draft Date of Exam:12/11/21 PELVIS WITH RIGHT HIP 2-3VIEWS Indication: Fall. Time of Exam: 8:25 AM AP view pelvis and 2 views of right hip were obtained. Femoral acetabular alignment is normal bilaterally. Both femoral heads and necks appear to be intact. The rami are intact. No fractures are seen. Impression: No acute bony abnormality is detected. Dictated on workstation # [id number] Dict: 12/11/21823 Trans: 12/11/21826 [facility] [id number] Interpreted by: FAMILIA CHANEL MD Electronically signed by: Departure Impression Primary Impression: Minor closed head injury Additional Impression: Contusion of hip, right Qualified Codes: S70.01XA - Contusion of right hip, initial encounter Disposition: HOME, SELF-CARE Condition: Stable Departure-Patient Inst. Decision time for Depature: 09:07 Referrals: FRANCISCO COFFEY DO (PCP/Family) Primary Care Physician Patient Instructions: Abrasions ED, Concussion, Adult (DC), Contusion (DC), Hip Pain (DC) Add. Discharge Instructions: All discharge instructions reviewed with patient and/or family. Voiced understanding. Continue home medications as previously prescribed. Follow-up with your doctor in a few days for recheck and further evaluation as needed. You may use a dab of antibiotic ointment over small wound on the back of the head once or twice daily for the next several days and then as needed. It is okay to rest and in fact you should rest due to concerns for concussion. Return for worse pain, vision or balance problems, weakness, difficulty with speech or walking, persistent vomiting greater than 3 times in 12 hours or other concerns as needed. MERCEDES MONET MD Dec 11, 2021 08:33
[2021-12-11] MEDS ORDERED: ONDANSETRON 4 MG (ZOFRAN) ORAL DISSOLVE TAB SL STA (08:46)
[2021-12-11 09:21] VITALS: BP 170/89
== END 2021-12-11 09:21 | disposition home or self-care (01) ==
LOC: EDUNIT# 07:22 → ER 07:24
DX: S09.90XA Unspecified injury of head, initial encounter (principal); S00.01XA Abrasion of scalp, initial encounter; S70.01XA Contusion of right hip, initial encounter; F17.210 Nicotine dependence, cigarettes, uncomplicated; W13.0XXA Fall from, out of or through balcony, initial encounter
CPT/HCPCS: 70450

== ENCOUNTER → 2022-02-11 | Outpatient (CLI) | payer BC ==
--- NOTE | 2022-02-11 17:31 | Diagnostic Imaging Report ---
EXAMINATION: CT head without contrast. TECHNIQUE: Multiple contiguous axial images were obtained through the brain without the use of intravenous contrast. All CT scans use one or more of the following dose optimizing techniques: automated exposure control, MA and/or KvP adjustment based on patient size and exam type or iterative reconstruction. HISTORY: Postconcussional syndrome. COMPARISON: 12/11/2021. FINDINGS: The ventricles and sulci are normal. No abnormal attenuation of brain parenchyma is present. No acute intracranial hemorrhage or abnormal extra-axial fluid collections are present. No hyperdense vessel. The calvarium is intact. The mastoid air cells are clear. The visualized paranasal sinuses are clear. The orbits are normal. IMPRESSION: No acute intracranial abnormality. Dictated by: Dictated on workstation # [id number]
== END ==
LOC: RAD 16:41
PROVIDERS: ATTEND Nurse Practitioner Family
DX: F07.81 Postconcussional syndrome (principal); G43.009 Migraine without aura, not intractable, without status migrainosus; J30.89 Other allergic rhinitis; J44.9 Chronic obstructive pulmonary disease, unspecified; G89.4 Chronic pain syndrome; Z76.0 Encounter for issue of repeat prescription; R11.0 Nausea; W17.89XS Other fall from one level to another, sequela
CPT/HCPCS: 70450